=== PATIENT | female | born 1950 | race Caucasian/White ===

== ENCOUNTER 2016-10-11 17:51 | Inpatient (IN) | payer MEDICARE, MEDICAID ==
[2016-10-11 18:13] LABS: Hematocrit 36.4 % (37.0-47.0); Hemoglobin 12.8 gm/dL (12.5-16.0); Mean Cell Volume 79.3 fl (78-100); Mean Corpuscular Hemoglobin 27.9 pg (27-31); Mean Corpuscular Hgb Conc 35.2 g/dl (32-36); Mean Platelet Volume 9.1 fl (6.0-9.5); Neutrophil # 5.1 K/mm3 (1.3-6.0); Neutrophil % 69.4 % (42-75.0); Platelet Count 244 K/mm3 (150-450); Red Blood Count 4.59 M/mm3 (4.2-5.4); Red Cell Distribution Width 13.2 % (11.5-14.0); White Blood Count 7.3 K/mm3 (4.0-10.5)
[2016-10-11 18:24] LABS: INR 1.09 INR (0.90-1.10); Partial Thrombolplastin Time 23.2 Seconds (24-32); Prothrombin Time (Patient) 11.3 Seconds (9.4-11.4)
[2016-10-11 18:26] LABS: Albumin * 3.2 gm/dl (3.4-5.0); Anion Gap 13.4 mmol/L (6.8-13.8); BUN/Creatinine Ratio 13.8 (9.0-21.6); Bilirubin, Total 0.8 mg/dL (0.0-1.1); Ca. Corrected For Albumin 9.5 mg/dL (8.4-10.2); Calcium * 9.2 mg/dL (7.9-10.9); Carbon Dioxide 28.1 mmol/L (24-32.6); Potassium 5.5 mmol/L (3.4-4.6)
--- NOTE | 2016-10-11 18:41 | ERNOTE ---
Neuro HPI ER Record Date of Service: 10/11/16 - 1800 Presenting Symptoms: confusion, difficulty walking Source: EMS Exam Limitations: clinical condition Immunizations: IMMUNIZATION HX Immunizations Up to Date Yes History of Influenza Vaccine No Hx Pneumococcal Vaccination Yes Allergies/Adverse Reactions: Allergies Allergy/AdvReac Type Severity Reaction Status Date / Time codeine [Codeine] Allergy Unknown Verified 04/16/16 10:31 Penicillins Allergy Unknown Verified 04/16/16 10:31 Sulfa (Sulfonamide Allergy Unknown Verified 04/16/16 10:31 Antibiotics) [Sulfa(Sulfonamide Antibiotics)] [id number] Reductase Allergy Verified 04/16/16 10:31 Inhibitor Home Medications: HOME MEDICATIONS Nitroglycerin 1 tab SL PRN PRN 06/28/12 [Last Taken 06/27/14] rOPINIRole HCL [Requip] 3 mg PO HS 06/28/12 [Last Taken 06/27/14] Tramadol HCl 100 mg PO Q6H PRN 07/15/12 [Last Taken 06/27/14] Multivitamins [Multivitamin Wale] 1 cap PO DAILY 10/05/13 [Last Taken 06/27/14 ] Meclizine HCl [Antivert] 25 mg PO TID PRN #14 tablet 07/13/14 [Last Taken Unknown] Metoprolol Tartrate [Lopressor] 25 mg PO DAILY #30 tablet 11/14/15 [Last Taken Unknown] Pravastatin Sodium [Pravachol] 40 mg PO HS #30 tablet 11/14/15 [Last Taken Unknown] Doxycycline Monohydrate 100 mg PO BID #20 tablet 04/16/16 [Last Taken Unknown] Insulin Detemir [Levemir] 25 units SQ BID 04/16/16 [Last Taken Unknown] Insulin Lispro [Humalog] 8 unit SQ AC 04/16/16 [Last Taken Unknown] Lisinopril [Prinivil] 10 mg PO BID 04/16/16 [Last Taken Unknown] Insulin Detemir [Levemir] See Protocol SC AC #1 vial 05/27/16 [Last Taken Unknown] Insulin Lispro [Humalog] 0 - 6 units SQ AC #1 vial 05/27/16 [Last Taken Unknown] - History of Present Illness Narrative: Unclear when the last time was that the patient was seen normal. She was however at the store and was found to be confused and unsteady on her feet so an ambulance called. Onset: cannot confirm onset Severity: moderate - Character of Deficits Additional Deficits: Present: impaired speech, decrease ability to walk Baseline Cognition: Present: alert, oriented x 4 Baseline Gait: Present: walks w/o assistance Review of Systems - Review of Systems Constitutional: Present: See HPI EYE: Present: no symptoms reported ENT: Present: no symptoms reported Respiratory: Present: no symptoms reported Cardiology: Present: no symptoms reported Gastrointestinal/Abdominal: Present: no symptoms reported Genitourinary: Present: no symptoms reported Musculoskeletal: Present: no symptoms reported Skin: Present: no symptoms reported Neurological: Present: See HPI Endocrine: Present: no symptoms reported Hematologic/Lymphatic: Present: no symptoms reported Psych: Present: no symptoms reported All Other Systems: All systems neg except as marked - unable to obtain a ROS due to the baseline status of the patient and the confusion - Patient's Past Medical History Patient History - Medical: Diabetes Type 2 Insulin Dependent, Depression, Renal Disease, Other Patient History - Cardiac/Respiratory: Coronary Heart Disease, Hypertension, Hyperlipidemia, Pneumonia Patient History - Cancer: No Hx of Cancer Patient History - Surgical Procedures: Appendectomy, Cholecystectomy, Cardiac stent, Hysterectomy, Other - Social History Living Situations: alone Abuse History: No History of abuse Psych History: Hx of Anxiety, Hx of Depression Alcohol Use: none Drug Use: none - Immunizations Immunizations Up to Date: Yes Hx Pneumococcal Vaccination: Yes History of Influenza Vaccine: No Physical Exam - Physical Exam General Appearance: Present: wd/wn, mild distress Eye Exam: Normal inspection: bilateral, PERRL: bilateral Ears, Nose, Throat: Present: normal ENT inspection, H, normal pharynx Neck: Present: normal inspection, nontender Respiratory: Present: no respiratory distress, normal breath sounds, no accessory muscle use, chest nontender, lungs clear Cardiovascular/Chest: Present: regular rate, rhythm, no murmur, normal peripheral pulses Gastrointestinal/Abdominal: Present: normal bowel sounds, nontender, nondistended, soft, no organomegaly Rectal Exam: Present: deferred Back Exam: Present: normal inspection, normal range of motion Extremity Exam: Present: normal inspection, non-tender, no edema, normal range of motion Neurological Exam: Present: disoriented to person, disoriented to time, disoriented to place, disoriented to situation. Absent: normal cerebellar test Skin Exam: Present: normal color, warm/dry Lymphatic Exam: Present: no adenopathy ED Progress - Results and Orders Patient's Lab Results:: I have reviewed the patient's lab results. - Vital Signs Patient's Vital Signs:: I have reviewed the patient's vital signs. - CT/Ultrasound CT/Ultrasound Narrative: EKG had was reviewed with radiologist and I discussed the findings with the family. - Progress/Reassessment Progress:: Unchanged Plan - Plan Plan: Patient will need to be admitted to the hospital. She will require an MRI and echocardiogram and probably carotid Doppler ultrasounds or perhaps MRA of the neck is well. Departure Clinical Impression: Acute CVA (cerebrovascular accident) Diabetes mellitus type 2, uncontrolled, with complications Qualifiers: Diabetes mellitus director long term care insulin use: unspecified director long term care insulin use status Qualified Code(s): E11.8 - Type 2 diabetes mellitus with unspecified complications; E11.65 - Type 2 diabetes mellitus with hyperglycemia - Departure Disposition: [facility] Condition: Fair
--- OUTSIDE RECORDS SUMMARY | 2016-10-11 18:56 | XMS REPORT | Continuity of Care Document ---
:1950 Author Organization [facility] ([facility]) Address [address] [place] [address] Phone [phone] Care Team Providers Name Role Phone Jake Shafer Primary Care Provider [phone] Source Comments This disclosure is being made pursuant to the Care Everywhere program, applicable federal and state laws, and may not contain all informaitonavailable regarding this patient.[facility] ([facility]) Active Allergies and Adverse Reactions Allergen Noted Date Severity Reactions Comments Atorvastatin 03/29/2011 Weakness Muscle wasting Ciprofloxacin 03/29/2011 Nausea & Vomiting Codeine OTHER chest pain Penicillins Urticaria (Hives) Simvastatin 03/29/2011 Weakness Muscle wasting Sulfadoxine Urticaria (Hives),OTHER difficulty breathing Current Medications Prescription Sig. Disp. Refills Start Date End Date Status SUPPLY FREESTYLE 1 Each by In Vitro 1 Each 0 05/19/2012 Active FREEDOM LITE meter route once. Indications: ABNORMAL GLUCOSE TOLERANCE aspirin 325 mg EC Take 1 Tab by mouth 30 Tab 07/01/2012 Active tablet daily. Indications: MYOCARDIAL INFARCTION PREVENTION SUPPLY lancets As directed 150 Each 07/02/2012 Active Indications: ABNORMAL GLUCOSE TOLERANCE SUPPLY insulin Take with lantus 30 Syringe 07/03/2012 Active syringe w/ needle +humalog . U-100 1 mL 28 g X Indications: diabtes 1" mellitus insulin lispro inject 4 Units 10 mL 07/03/2012 Active (HumaLOG) 100 subcutaneously 3 unit/mL injection times daily with vial meals. Indications: DIABETES MELLITUS citalopram (CELEXA) Take 2 Tabs by mouth 120 Tab 3 05/16/2013 Active 20 mg tablet daily. Depression Indications: VASOMOTOR SYMPTOMS ASSOCIATED WITH MENOPAUSE nitroglycerin 0.[address] 1 Tab under 25 Tab 0 05/16/2013 Active mg SL tablet the tongue every 5 minutes as needed for Chest pain. Indications: ANGINA lisinopril 20 mg Take 1 Tab by mouth 60 Tab 3 05/16/2013 Active tablet daily. Indications: HYPERTENSION metoPROLol tartrate Take 0.5 Tabs by 120 Tab 3 05/16/2013 Active 25 mg tablet mouth every 12 hours. Indications: CAD pravastatin 20 mg Take 1 Tab by mouth 60 Tab 3 05/16/2013 Active tablet at bedtime. Indications: MIXED HYPERLIPIDEMIA isosorbide Take 0.5 Tabs by 60 Tab 3 05/16/2013 Active mononitrate 60 mg mouth daily. CR tablet Indications: ANGINA PECTORIS PREVENTION SUPPLY blood As directed 150 Strip 11 05/16/2013 Active glucose test strips Indications: ABNORMAL GLUCOSE TOLERANCE traMADol 50 mg Take 1-2 Tabs by 90 Tab 3 05/16/2013 Active tablet mouth 3 times daily as needed. Indications: PAIN rOPINIRole (REQUIP) Take 1 Tab by mouth 90 Tab 1 05/16/2013 Active 1 mg tablet 3 times daily. RLS Indications: RESTLESS LEGS SYNDROME insulin glargine inject 45 Units 4 Vial 3 05/31/2013 Active (LanTUS) 100 subcutaneously at unit/mL injection bedtime. vial Indications: DIABETES MELLITUS pregabalin (LYRICA) Take 1 Cap by mouth 270 Cap 1 05/31/2013 Active 75 mg capsule 3 times daily. Indications: DIABETIC PERIPHERAL NEUROPATHY Active Problems Problem Noted Date UTI (lower urinary tract infection) 07/18/2012 Chest pain, unspecified 07/15/2012 CAD (coronary artery disease) 07/15/2012 Non compliance w medication regimen 07/15/2012 Menopausal syndrome (hot flashes) 07/15/2012 RLS (restless legs syndrome) 07/15/2012 Health education/counseling 05/19/2012 Chest pain 03/29/2011 Non-ST elevation myocardial infarction (NSTEMI) 03/29/2011 Obesity, unspecified 10/08/2008 Depressive disorder, not elsewhere classified 07/11/2008 Myalgia and myositis, unspecified 07/11/2008 Unspecified essential hypertension 07/11/2008 Insomnia, unspecified 07/11/2008 Other and unspecified hyperlipidemia 04/03/2008 Background diabetic retinopathy(362.01) 02/01/2008 Type II or unspecified type diabetes mellitus without mention of 12/20/2007 complication, not stated as uncontrolled Immunizations Name Dates Previously Given Next Due Pneumococcal Polysaccharide, PPSV23 (Pneumovax 23) 05/13/2010 Social History Tobacco Use Types Packs/Day Years Used Date Former Smoker Cigarettes Quit: 03/29/1971 Smokeless Tobacco: Never Used Alcohol Use Drinks/Week oz/Week Comments No Last Filed Vital Signs Vital Sign Reading Time Taken Blood Pressure 133/71 05/16/2013 3:02 PM HANDLE ATTACHER Pulse 74 05/16/2013 3:02 PM HANDLE ATTACHER Temperature 36.3 C (97.3 F) 05/16/2013 3:02 PM HANDLE ATTACHER Respiratory Rate 16 07/18/2012 9:10 AM HANDLE ATTACHER Height 1.575 m (5' 2") 07/15/2012 10:35 PM HANDLE ATTACHER Weight 69.037 kg (152 lb 3.2 oz) 05/16/2013 3:02 PM HANDLE ATTACHER Body Mass Index 27.83 05/16/2013 3:02 PM HANDLE ATTACHER Oxygen Saturation 96% 07/18/2012 12:45 PM HANDLE ATTACHER Plan of Care Patient Goal Type Goal Diet Increase water intake Lifestyle Increase physical activity Health Maintenance Due Date Last Done Comments Hepatitis B Vaccine (1 of 3 - 1950 Primary Series) Sigmoidoscopy Colon Cancer 1999 Screening Zoster Vaccine 2009 FOBT Colon Cancer Screening 04/28/2012 04/28/2011 DIABETIC: Microalbumin 05/19/2013 05/19/2012, Additional history exists 05/13/2010, 01/22/2009 DIABETIC: Hemoglobin A1C 11/13/2013 05/16/2013, Additional history exists 07/01/2012, 06/30/2012 Osteoporosis Screening (DXA 2014 Bone Density) Pneumococcal Vaccine (1 of 2 2014 05/13/2010 - PCV13) DIABETIC: Cholesterol 05/16/2014 05/16/2013, Additional history exists 07/01/2012, 05/19/2012 DIABETIC: Foot Exam 05/16/2014 05/16/2013, Additional history exists 05/16/2013, 04/20/2011 Diabetic: Hdl 05/16/2014 05/16/2013, Additional history exists 07/01/2012, 05/19/2012 Diabetic: Ldl 05/16/2014 05/16/2013, Additional history exists 07/01/2012, 05/19/2012 DIABETIC: Retinal Eye Exam 05/16/2014 05/16/2013 (Declined) DIABETIC: Triglycerides 05/16/2014 05/16/2013, Additional history exists 07/01/2012, 05/19/2012 Mammogram 05/16/2014 05/16/2013 (Declined), 05/13/2010, 04/03/2008 Influenza Vaccine: Seasonal 02/03/2016 (#1) Td Vaccine 05/19/2016 05/19/2006 Colonoscopy 05/19/2022 05/19/2012 (Declined) HCV Screening Completed 07/01/2012 Tdap Vaccine Addressed 05/16/2013 Overridden with the (Postponed) intention of not completing the topic Results from Last 3 Months Not on file
--- OUTSIDE RECORDS SUMMARY | 2016-10-11 19:04 | XMS REPORT | Continuity of Care Document ---
:1950 Author Organization [facility] ([facility]) Address [address] [place] [address] Phone [phone] Care Team Providers Name Role Phone Jake Shafer Primary Care Provider [phone] Source Comments This disclosure is being made pursuant to the Care Everywhere program, applicable federal and state laws, and may not contain all informaitonavailable regarding this patient.[facility] ([facility]) Active Allergies and Adverse Reactions Allergen Noted [...] Taken Blood Pressure 133/71 05/16/2013 3:02 PM LANGUAGE ASST Pulse 74 05/16/2013 3:02 PM LANGUAGE ASST Temperature 36.3 C (97.3 F) 05/16/2013 3:02 PM LANGUAGE ASST Respiratory Rate 16 07/18/2012 9:10 AM LANGUAGE ASST Height 1.575 m (5' 2") 07/15/2012 10:35 PM LANGUAGE ASST Weight 69.037 kg (152 lb 3.2 oz) 05/16/2013 3:02 PM LANGUAGE ASST Body Mass Index 27.83 05/16/2013 3:02 PM LANGUAGE ASST Oxygen Saturation 96% 07/18/2012 12:45 PM LANGUAGE ASST Plan of Care Patient Goal Type Goal [...]
[2016-10-11] MEDS ORDERED: NORMAL SALINE 1,000 ML IV ONE (20:23)
[2016-10-11] MEDS ORDERED: INSULIN ASPART 100 UNITS/ML VIAL SC SCH (21:00)
[2016-10-11] MEDS: NORMAL SALINE 1,000 ML IV PRN (21:50)
[2016-10-11] MEDS: INSULIN LISPRO 100 UNITS/ML VIAL SC SCH (21:56)
--- NOTE | 2016-10-12 01:30 | HP ---
Addendum entered and electronically signed by Gibran Hoffman DO 11/16/16 01:31: Patient was seen with Hospitalist, Fabienne Veloz. Agree with narrative and plan. Suspect Stroke based on CT, will evaluate for cause with MRA. Appears to be acute on chronic changes. Will consult PT, OT, and ST. Original Note: Chief Complaint - Chief Complaint Date of Service: 10/12/16 Time of Service: 01:30 Chief Complaint: Confusion, weakness. History of Present Illness: Ms. Olson is a 66-yr-old [place] pt of Dr. Hidalgo with a PMH of: CKD, CAD, Depression, DM II, HTN, Insomina & MA. Pt was brought by the EMS to the [facility] ER following an episode of confusion and unsteadiness that happened while she was out shopping at a local store. She is unable to relay how she has been feeling, but recalls that she felt suddenly weak, dizzy, and that she feels that way when her blood sugars are high. There was no loss of consciousness with this episode. During evaluation at the ED, The head CT showed she had an infarct on the LT parietal occipital lobe. She was also found to have Acute on chronic kidney disease with a creatinine of 2.17. Off note family reports that over the last several months, pt has had worsening confusion or says things that do not make sense. Daughter states that her confusions seem to be worse during the evening hours. They also have concerns that she has not been managing her DM well. Pt will need to be admitted under observation to determine the etiology of AMS. - Patient's Past Medical History Patient History - Medical: Diabetes Type 2 Insulin Dependent, Depression, Renal Disease, Other Patient History - Cardiac/Respiratory: Coronary Heart Disease, Hypertension, Hyperlipidemia, Pneumonia Patient History - Cancer: No Hx of Cancer Patient History - Surgical Procedures: Appendectomy, Cholecystectomy, Cardiac stent, Hysterectomy LMP (females 10-50): Menopausal - Social History Living Situations: alone Abuse History: No History of abuse Psych History: Hx of Anxiety, Hx of Depression Smoking Status: Never smoker Have you smoked in the past 12 months: No Alcohol Use: none Drug Use: none - Immunizations Immunizations Up to Date: Yes Hx Pneumococcal Vaccination: Yes History of Influenza Vaccine: No Review Of Systems (GEN) - Review of Systems Generalized/Overall Review: Present: Weakness. Absent: Fever EENTM: Absent: Eye Pain, Blurred Vision, Throat Pain, Throat Swelling Respiratory: Absent: Cough, Shortness of Breath, Orthopnea Cardiac: Absent: Chest Pain, Edema, Palpitations, Syncope Abdominal: Absent: Nausea, Vomiting Genitourinary: Absent: Burning, Frequency, Hesitancy Musculoskeletal: Absent: Joint Pain, Back Pain, Joint Swelling Neurological: Present: Weakness. Absent: Headache, Anxiety, Depressed Endocrine: Present: Intolerance to Heat Misc: All systems neg except as marked Allergies/Adverse Reactions: Allergies Allergy/AdvReac Type Severity Reaction Status Date / Time codeine [Codeine] Allergy Unknown Verified 04/16/16 10:31 Penicillins Allergy Unknown Verified 04/16/16 10:31 Sulfa (Sulfonamide Allergy Unknown Verified 04/16/16 10:31 Antibiotics) [Sulfa(Sulfonamide Antibiotics)] Urhesfi-Hfn-Kaw Reductase Allergy Verified 04/16/16 10:31 Inhibitor Home Medications: HOME MEDICATIONS Nitroglycerin 1 tab SL PRN PRN 06/28/12 [Last Taken 06/27/14] rOPINIRole HCL [Requip] 3 mg PO HS 06/28/12 [Last Taken 06/27/14] Tramadol HCl 100 mg PO Q6H PRN 07/15/12 [Last Taken 06/27/14] Multivitamins [Multivitamin Wale] 1 cap PO DAILY 10/05/13 [Last Taken 06/27/14 ] Metoprolol Tartrate [Lopressor] 25 mg PO DAILY #30 tablet 11/14/15 [Last Taken Unknown] Pravastatin Sodium [Pravachol] 40 mg PO HS #30 tablet 11/14/15 [Last Taken Unknown] Insulin Detemir [Levemir] 25 units SQ BID 04/16/16 [Last Taken Unknown] Insulin Lispro [Humalog] 8 unit SQ AC 04/16/16 [Last Taken Unknown] Lisinopril [Prinivil] 10 mg PO BID 04/16/16 [Last Taken Unknown] Insulin Lispro [Humalog] 0 - 6 units SQ AC #1 vial 05/27/16 [Last Taken Unknown] Sertraline HCl [Zoloft] 25 mg PO DAILY 10/11/16 [Last Taken Unknown] Exam - Exam Vital Signs: Vital Signs - Last Taken Temp 36.8 C 10/12/16 00:22 Pulse 70 10/12/16 00:22 Resp 20 10/12/16 00:22 BP 144/60 10/12/16 00:22 Pulse Ox 93 10/12/16 00:22 Constitutional: Present: Alert, Oriented x3, Cooperative, No distress ENT Exam: Present: normal ENT inspection. Absent: nasal drainage, pharyngeal erythema Eye Exam: bilateral eye: normal inspection, PERRL Neck: Present: full range of motion, supple, normal inspection Back Exam: Present: normal inspection, no CVA tenderness Breasts: Present: Exam deferred Respiratory: Present: lungs clear, no accessory muscle use Cardiovascular/Chest: Present: normal peripheral pulses, regular rate, rhythm, no chest tenderness, no murmur Abdomen: Present: Normal bowel sounds, soft, nontender /Rectal: Present: Exam deferred Extremity: Present: normal range of motion, non-tender, normal inspection, no calf tenderness Skin Exam: Present: warm/dry, no cyanosis Lymphatic: Present: no adenopathy Neurologic: Present: alert, normal mood/affect, oriented x 3 Appearance: Present: appropriate appearance, appropriate insight Eye contact: Present: cooperative, good eye contact, normal speech Thoughts: Present: normal thought pattern, no apparent hallucination Diagnostic Studies: Laboratory Results WBC 7.3 K/mm3 (4.0-10.5) 10/11/16 18:10 RBC 4.59 M/mm3 (4.2-5.4) 10/11/16 18:10 Hgb 12.8 gm/dL (12.5-16.0) 10/11/16 18:10 Hct 36.4 % (37.0-47.0) L 10/11/16 18:10 MCV 79.3 fl (78-100) 10/11/16 18:10 MCH 27.9 pg (27-31) 10/11/16 18:10 MCHC 35.2 g/dl (32-36) 10/11/16 18:10 RDW 13.2 % (11.5-14.0) 10/11/16 18:10 Plt Count 244 K/mm3 (150-450) 10/11/16 18:10 MPV 9.1 fl (6.0-9.5) 10/11/16 18:10 Immature Gran % (Auto) 0.40 % (0.001-0.429) 10/11/16 18:10 Immature Gran # (Auto) 0.03 K/mm3 (0.000-0.0310) 10/11/16 18:10 Neutrophils % 69.4 % (42-75.0) 10/11/16 18:10 Lymphocytes % 24.7 % (20-51) 10/11/16 18:10 Monocytes % 4.7 % (0.0-9) 10/11/16 18:10 Eosinophils % 0.3 % (0.0-3.0) 10/11/16 18:10 Basophils % 0.5 % (0.0-1.0) 10/11/16 18:10 Nucleated RBC % 0.0 k/mm3 (0-1) 10/11/16 18:10 Neutrophils # 5.1 K/mm3 (1.3-6.0) 10/11/16 18:10 Lymphocytes # 1.8 k/mm3 (1.5-3.5) 10/11/16 18:10 Monocytes # 0.3 k/mm3 (0.0-1.0) 10/11/16 18:10 Eosinophils # 0.0 k/mm3 (0.0-0.7) 10/11/16 18:10 Absolute Basophils 0.0 k/mm3 (0.0-0.1) 10/11/16 18:10 ESR 45 mm/hr (0-15) H 10/11/16 18:10 PT 11.3 Seconds (9.4-11.4) 10/11/16 18:10 INR (Anticoag Therapy) 1.09 INR (0.90-1.10) 10/11/16 18:10 PTT ([place]) 23.2 Seconds (24-32) L 10/11/16 18:10 Sodium 132 mmol/L (132-142) 10/11/16 18:10 Plasma Sodium 137 mmol/L (130-142) 10/11/16 18:10 Potassium 5.5 mmol/L (3.4-4.6) H 10/11/16 18:10 Chloride 96 mmol/L (97-106) L 10/11/16 18:10 Carbon Dioxide 28.1 mmol/L (24-32.6) 10/11/16 18:10 Anion Gap 13.4 mmol/L (6.8-13.8) 10/11/16 18:10 BUN 30 mg/dL (3-23) H D 10/11/16 18:10 Creatinine 2.17 mg/dL (0.4-1.4) H D 10/11/16 18:10 Est GFR (Non-Af Amer) 24 mL/min (60-130) L D 10/11/16 18:10 BUN/Creatinine Ratio 13.8 (9.0-21.6) 10/11/16 18:10 Random Glucose 398 mg/dL (70-110) H 10/11/16 18:10 Calcium 9.2 mg/dL (7.9-10.9) 10/11/16 18:10 Calcium Adj for Albumin 9.5 mg/dL (8.4-10.2) 10/11/16 18:10 Magnesium 1.7 mg/dL (1.2-2.8) 10/11/16 18:10 Total Bilirubin 0.8 mg/dL (0.0-1.1) 10/11/16 18:10 AST 10 U/L (0-48) 10/11/16 18:10 ALT 15 U/L (19-67) L 10/11/16 18:10 Alkaline Phosphatase 68 U/L (50-170) 10/11/16 18:10 Total Protein 7.0 gm/dL (6.2-8.2) 10/11/16 18:10 Albumin 3.2 gm/dl (3.4-5.0) L 10/11/16 18:10 Serum Ketones Negative (NEGATIVE) 10/11/16 18:10 Assessment/Plan - Assessment/Plan (1) TIA (transient ischemic attack) Assessment: CT of the head showed infarct of LT occipital lobe. Will need MRI on head & Neck in am to r/o or r/i CVA. Will be admitted under telemetry monitoring. Monitor neuro checks. Problem: Acute (2) Altered mental status, unspecified Assessment: Likely due to metabolic derangements. BUN/CR elevated at 30/2.17.Will provide IVF hydration. MRI of head may help in ruling out vascular dementia. Problem: Acute (3) Acute kidney injury Assessment: Is likely pre- renal. Her base line in the past is usually in the [place] Will hold the Lisinopril. IVF hydration. BMP in am. Problem: Acute (4) Discharge planning issues Assessment: Pt lives independently but family express poor self care & DM mgt. Will have case management coordinate [facility] Services. Problem: Acute (5) Diabetes Problem: Chronic Qualifiers: Diabetes mellitus type: type 2 (6) Hypertension Problem: Chronic Qualifiers: Hypertension type: essential hypertension
[2016-10-12] MEDS ORDERED: traMADol HCL 50 MG TABLET PO PRN (05:15)
[2016-10-12] MEDS ORDERED: NITROGLYCERIN 0.4 MG/TAB BTL SL PRN (05:15)
[2016-10-12] MEDS: NORMAL SALINE 1,000 ML IV PRN ×3 (05:35→22:26)
[2016-10-12 05:38] LABS: Urine Bilirubin Negative (NEGATIVE); Urine Blood 50 /ul (NEGATIVE); Urine Ketone Negative (NEGATIVE); Urine Nitrite Negative (NEGATIVE); Urine Protein 100 mg/dL (NEGATIVE); Urine Specific Gravity 1.025 SP.GR. (1.005-1.010); Urine Urobilinogen Normal (NORMAL)
[2016-10-12 05:57] LABS: Urine Appearance Slightly Cloudy; Urine Color Yellow
[2016-10-12 05:58] LABS: Urine Bacteria 1+; Urine RBC 0-5 /hpf (0-5); Urine WBC 25-50 /hpf (0-5); Urine Yeast Many - 3+
[2016-10-12] MEDS: INSULIN LISPRO 100 UNITS/ML VIAL SC SCH ×7 (07:12→20:43)
[2016-10-12] MEDS: LISINOPRIL 10 MG TABLET PO SCH ×2 (08:53→20:37)
[2016-10-12] MEDS: SERTRALINE HCL 50 MG TABLET PO SCH (08:53)
[2016-10-12] MEDS: MULTIVITAMINS 1 CAP CAPSULE PO SCH (08:53)
[2016-10-12] MEDS: INSULIN DETEMIR 100 UNITS/ML VIAL SC SCH ×2 (08:55→20:41)
[2016-10-12 09:38] LABS: Hematocrit 28.6 % (37.0-47.0); Hemoglobin 10.1 gm/dL (12.5-16.0); Mean Cell Volume 80.1 fl (78-100); Mean Corpuscular Hemoglobin 28.3 pg (27-31); Mean Corpuscular Hgb Conc 35.3 g/dl (32-36); Mean Platelet Volume 8.9 fl (6.0-9.5); Neutrophil # 3.3 K/mm3 (1.3-6.0); Neutrophil % 54.3 % (42-75.0); Platelet Count 170 K/mm3 (150-450); Red Blood Count 3.57 M/mm3 (4.2-5.4); Red Cell Distribution Width 12.9 % (11.5-14.0); White Blood Count 6.1 K/mm3 (4.0-10.5)
[2016-10-12 09:56] LABS: Albumin * 2.4 gm/dl (3.4-5.0); Anion Gap 11.8 mmol/L (6.8-13.8); BUN/Creatinine Ratio 19.5 (9.0-21.6); Bilirubin, Total 0.6 mg/dL (0.0-1.1); Ca. Corrected For Albumin 9.4 mg/dL (8.4-10.2); Calcium * 8.4 mg/dL (7.9-10.9); Carbon Dioxide 27.2 mmol/L (24-32.6); Total Protein 5.5 gm/dL (6.2-8.2); Troponin I 0.09 ng/ml (0.00-0.10)
[2016-10-12] MEDS: ASPIRIN 325 MG TABLET.DR PO SCH (11:12)
[2016-10-12 16:53] LABS: Albumin * 2.7 gm/dl (3.4-5.0); Anion Gap 9.6 mmol/L (6.8-13.8); BUN/Creatinine Ratio 21.2 (9.0-21.6); Bilirubin, Total 0.4 mg/dL (0.0-1.1); Ca. Corrected For Albumin 9.1 mg/dL (8.4-10.2); Calcium * 8.4 mg/dL (7.9-10.9); Carbon Dioxide 27.4 mmol/L (24-32.6); Total Protein 6.1 gm/dL (6.2-8.2)
[2016-10-12 16:58] LABS: Troponin I 0.112 ng/ml (0.00-0.10)
[2016-10-12] MEDS: rOPINIRole HCL 1 MG TABLET PO SCH (20:37)
[2016-10-12] MEDS ORDERED: SIMVASTATIN 20 MG TABLET PO SCH (21:00)
[2016-10-13 05:35] LABS: Hematocrit 29.3 % (37.0-47.0); Hemoglobin 10.1 gm/dL (12.5-16.0); Mean Cell Volume 80.5 fl (78-100); Mean Corpuscular Hemoglobin 27.7 pg (27-31); Mean Corpuscular Hgb Conc 34.5 g/dl (32-36); Mean Platelet Volume 9.8 fl (6.0-9.5); Neutrophil % 53.3 % (42-75.0); Platelet Count 166 K/mm3 (150-450); Red Blood Count 3.64 M/mm3 (4.2-5.4); White Blood Count 5.6 K/mm3 (4.0-10.5)
[2016-10-13 05:57] LABS: Albumin * 2.4 gm/dl (3.4-5.0); Anion Gap 10.2 mmol/L (6.8-13.8); BUN/Creatinine Ratio 20.4 (9.0-21.6); Bilirubin, Total 0.4 mg/dL (0.0-1.1); Ca. Corrected For Albumin 9.2 mg/dL (8.4-10.2); Calcium * 8.2 mg/dL (7.9-10.9); Potassium 4.2 mmol/L (3.4-4.6); Total Protein 5.5 gm/dL (6.2-8.2)
[2016-10-13] MEDS: NORMAL SALINE 1,000 ML IV PRN ×3 (06:17→22:27)
[2016-10-13] MEDS: INSULIN LISPRO 100 UNITS/ML VIAL SC SCH ×7 (07:20→21:04)
[2016-10-13] MEDS: ASPIRIN 325 MG TABLET.DR PO SCH (08:33)
[2016-10-13] MEDS: SERTRALINE HCL 50 MG TABLET PO SCH (08:33)
[2016-10-13] MEDS: MULTIVITAMINS 1 CAP CAPSULE PO SCH (08:33)
[2016-10-13] MEDS: LISINOPRIL 10 MG TABLET PO SCH ×2 (08:33→21:08)
[2016-10-13] MEDS: INSULIN DETEMIR 100 UNITS/ML VIAL SC SCH ×2 (09:44→22:26)
[2016-10-13] MEDS: rOPINIRole HCL 1 MG TABLET PO SCH (21:09)
[2016-10-14] MEDS: INSULIN LISPRO 100 UNITS/ML VIAL SC SCH ×7 (06:46→20:23)
[2016-10-14] MEDS: NORMAL SALINE 1,000 ML IV PRN (06:49)
[2016-10-14] MEDS ORDERED: SIMVASTATIN 20 MG TABLET PO ONE (08:40)
--- NOTE | 2016-10-14 08:47 | PN ---
Subjective - Date and Time Seen Date: 10/13/16 Time: 16:15 Subjective Narrative: Reports getting stronger. States she was able to walk in the [place] with PT. Nursing reports she has otherwise been in bed. Patient denies difficulty eating or speaking. Nursing has noted difficulty getting out the right words. No concerns for swallow. Objective - Vitals Vitals: Last Vital Signs 10/13/16 10:18 Temperature 36.6 C Pulse Rate 56 L Respiratory 18 Rate Blood Pressure 151/65 O2 Sat by Pulse 94 Oximetry - Exam Constitutional: Present: Alert, Oriented x3, Cooperative ENT Exam: Present: hearing grossly normal Respiratory: Present: lungs clear, normal breath sounds Cardiovascular/Chest: Present: regular rate, rhythm, no murmur Abdomen: Present: Normal bowel sounds, soft, nontender, nondistended Assessment/Plan - Problems/Diagnosis (1) Acute CVA (cerebrovascular accident) Problem: Acute Narrative: Continue with therapy, making improvement. Brain imaging shows acute on chronic CVA. She recently has not been on statin or aspirin. She is now on aspirin 325mg daily and will restart pravastatin 40mg as lipids were elevated. Continue PT, OT, ST. (2) Acute on chronic renal failure Problem: Resolved Narrative: With fluids this has resolved.
--- NOTE | 2016-10-14 09:16 | ECHO ---
This report is available in the EMR
[2016-10-14] MEDS: LISINOPRIL 10 MG TABLET PO SCH ×2 (09:20→20:25)
[2016-10-14] MEDS: MULTIVITAMINS 1 CAP CAPSULE PO SCH (09:20)
[2016-10-14] MEDS: ASPIRIN 325 MG TABLET.DR PO SCH (09:20)
[2016-10-14] MEDS: INSULIN DETEMIR 100 UNITS/ML VIAL SC SCH ×2 (09:21→20:24)
[2016-10-14] MEDS: SERTRALINE HCL 50 MG TABLET PO SCH (09:21)
[2016-10-14] MEDS: rOPINIRole HCL 1 MG TABLET PO SCH (20:25)
[2016-10-15] MEDS: INSULIN LISPRO 100 UNITS/ML VIAL SC SCH ×7 (06:54→20:19)
[2016-10-15] MEDS ORDERED: ONDANSETRON 4 MG TAB.RAPDIS PO PRN (10:00)
[2016-10-15 10:06] LABS: Hematocrit 33.7 % (37.0-47.0); Hemoglobin 11.7 gm/dL (12.5-16.0); Mean Cell Volume 80.4 fl (78-100); Mean Corpuscular Hemoglobin 27.9 pg (27-31); Mean Corpuscular Hgb Conc 34.7 g/dl (32-36); Mean Platelet Volume 9.6 fl (6.0-9.5); Neutrophil # 2.8 K/mm3 (1.3-6.0); Neutrophil % 48.4 % (42-75.0); Platelet Count 236 K/mm3 (150-450); Red Blood Count 4.19 M/mm3 (4.2-5.4); Red Cell Distribution Width 12.9 % (11.5-14.0); White Blood Count 5.9 K/mm3 (4.0-10.5)
[2016-10-15 10:22] LABS: Albumin * 2.7 gm/dl (3.4-5.0); Anion Gap 11.9 mmol/L (6.8-13.8); BUN/Creatinine Ratio 14.9 (9.0-21.6); Bilirubin, Total 0.7 mg/dL (0.0-1.1); Ca. Corrected For Albumin 9.4 mg/dL (8.4-10.2); Calcium * 8.7 mg/dL (7.9-10.9); Carbon Dioxide 26.1 mmol/L (24-32.6); Total Protein 6.3 gm/dL (6.2-8.2)
[2016-10-15] MEDS: MULTIVITAMINS 1 CAP CAPSULE PO SCH (10:42)
[2016-10-15] MEDS: SERTRALINE HCL 50 MG TABLET PO SCH (10:42)
[2016-10-15] MEDS: CLOPIDOGREL BISULFATE 75 MG TABLET PO SCH (10:42)
[2016-10-15] MEDS: INSULIN DETEMIR 100 UNITS/ML VIAL SC SCH ×2 (10:43→20:20)
[2016-10-15] MEDS: LISINOPRIL 10 MG TABLET PO SCH ×2 (10:50→20:20)
--- NOTE | 2016-10-15 10:53 | PN ---
Subjective - Date and Time Seen Date: 10/14/16 Time: 16:30 Subjective Narrative: Alon reports feeling well, she feels like she is strong enough to go home and do everything she normally does. PT and OT feel she is doing well. She has not been able to see speech therapy yet. Patient's relative who was visiting reported that she had moments of confusion that were not normal. It was reported that the patient was talking about meeting a relative that has been for many years. She also seemed confused with how to use toilet paper. Family feels concerned that she is too confused at times to be safe at home on her own. Objective - Vitals Vitals: Last Vital Signs 10/14/16 15:00 Temperature 36.9 C Pulse Rate 60 Respiratory 16 Rate Blood Pressure 182/80 O2 Sat by Pulse 93 Oximetry - Abnormal Lab Findings Abnormal Lab Findings: Abnormal Lab Results - Exam Constitutional: Present: Alert, Oriented x3, Cooperative ENT Exam: Present: hearing grossly normal Respiratory: Present: lungs clear, normal breath sounds Cardiovascular/Chest: Present: regular rate, rhythm, no murmur Abdomen: Present: Normal bowel sounds, soft, nontender, nondistended Skin Exam: Present: normal color, warm/dry, no cyanosis Assessment/Plan - Problems/Diagnosis (1) Acute CVA (cerebrovascular accident) Problem: Acute Narrative: Ok for home per PT and OT. Has not been evaluated by speech. Patient has confusion to the point she is not safe to be at home by herself. Will have a meeting with family tomorrow about staying with a family member vs home health vs nursing facility. Continue Aspirin 325mg and Statin. BP controlled. (2) Acute on chronic renal failure Problem: Resolved
--- NOTE | 2016-10-15 11:11 | PN ---
Subjective - Date and Time Seen Date: 10/15/16 Time: 10:53 Subjective Narrative: Patient was in her usual state of health during this hospital course this morning when it was noted by nursing aid that she was staring off in space and non-responsive. She did not respond to stimulis. Nursing reports pupils were not reactive to light. She had a state Head CT that showed no acute change from prior. The patient has gradually improved since then and now follows commands although seems very "spacey." She is able to move all extremities and follow commands. She has no focal motor or sensory loss. No facial droop. She is able to talk but very slow and quiet from her usual. No slurred speech. Objective - Vitals Vitals: Last Vital Signs Temp 36.8 C 10/15/16 10:23 Pulse 56 L 10/15/16 10:23 Resp 16 10/15/16 10:23 BP 143/68 10/15/16 10:23 Pulse Ox 98 10/15/16 10:23 - Abnormal Lab Findings Abnormal Lab Findings: Abnormal Lab Results 10/15/16 10/15/16 Range/Units 08:30 08:30 RBC 4.19 L (4.2-5.4) M/mm3 Hgb 11.7 L (12.5-16.0) gm/dL Hct 33.7 L (37.0-47.0) % MPV 9.6 H (6.0-9.5) fl Immature Gran % (Auto) 0.50 H (0.001-0.429) % Potassium 5.0 H (3.4-4.6) mmol/L Creatinine 1.41 H (0.4-1.4) mg/dL Est GFR (Non-Af Amer) 40 L D (60-130) mL/min ALT 15 L (19-67) U/L Albumin 2.7 L (3.4-5.0) gm/dl - Exam Constitutional: Present: Alert, Other - Oriented x 0, patient confused, is unsure what is going on, follows commands, appears post-ictal Respiratory: Present: lungs clear, normal breath sounds Cardiovascular/Chest: Present: regular rate, rhythm, no murmur Abdomen: Present: Normal bowel sounds, soft, nontender, nondistended Skin Exam: Present: normal color, warm/dry, no cyanosis Neurologic: Present: it architect II-XII nml as tested, no motor/sensory deficits, depressed affect Assessment/Plan Plan Narrative: This morning patient had altered mental state that appeared more of absence seizure with post ictal state. Stat head CT showed no acute changes. Discussed with Neurology who agreed with getting EEG. Bloodwork shows no significant changes to cause this episode. Had been planning to discharge today, but due to this episode will hold off and monitor for atleast another 24 hours. - Problems/Diagnosis (1) Altered mental state Problem: Acute (2) Acute CVA (cerebrovascular accident) Problem: Acute (3) Acute on chronic renal failure Problem: Resolved
[2016-10-15] MEDS: ASPIRIN 325 MG TABLET.DR PO SCH (11:25)
[2016-10-15] MEDS: rOPINIRole HCL 1 MG TABLET PO SCH (20:20)
[2016-10-16] MEDS: INSULIN LISPRO 100 UNITS/ML VIAL SC SCH ×7 (06:55→20:27)
[2016-10-16] MEDS: LISINOPRIL 10 MG TABLET PO SCH ×2 (08:46→20:43)
[2016-10-16] MEDS: MULTIVITAMINS 1 CAP CAPSULE PO SCH (08:46)
[2016-10-16] MEDS: CLOPIDOGREL BISULFATE 75 MG TABLET PO SCH (08:46)
[2016-10-16] MEDS: SERTRALINE HCL 50 MG TABLET PO SCH (08:46)
[2016-10-16] MEDS: INSULIN DETEMIR 100 UNITS/ML VIAL SC SCH ×2 (08:48→20:32)
[2016-10-16] MEDS: levETIRAcetam 500 MG TABLET PO SCH ×2 (14:49→20:32)
[2016-10-16] MEDS: rOPINIRole HCL 1 MG TABLET PO SCH (20:32)
--- NOTE | 2016-10-16 23:54 | PN ---
Subjective - Date and Time Seen Date: 10/16/16 Time: 14:16 Subjective Narrative: Patient reports feeling well, but does not recall what has happened today. No focal concerns at this time. Family and nursing report that she was in her usual state of health this morning but around noon she had an episode of staring off into space for about 10 minutes. She was unable to follow commands during this time. She had eyes open staring at the wall. During this time she was also witness by her son, Fab, to have bilateral arm tremors with clenched fists (right greater than left). This resolved and slowly afterwards her mentation gradually returned to normal over the next few hours. Objective - Vitals Vitals: Last Vital Signs Temp 36.4 C L 10/16/16 22:34 Pulse 54 L 10/16/16 22:34 Resp 18 10/16/16 22:34 BP 119/47 10/16/16 22:34 Pulse Ox 93 10/16/16 22:34 - Exam Constitutional: Present: Alert, Oriented x3, Cooperative Respiratory: Present: lungs clear, normal breath sounds, no respiratory distress Cardiovascular/Chest: Present: normal peripheral pulses, regular rate, rhythm, no edema Abdomen: Present: Normal bowel sounds, soft, nontender, nondistended Skin Exam: Present: normal color, warm/dry, no cyanosis Assessment/Plan - Problems/Diagnosis (1) Seizure disorder as sequela of cerebrovascular accident Problem: Acute Narrative: Alon is a 66 yo female with evidence on MRI of acute on chronic stroke. Elevated lipids. Prior to hospitalization she was not on aspirin or any other blood thinner and was not currently taking a statin. She reports prior history of intolerance to statins but thinks that she may have done ok with pravastatin. She was admitted with an episode of altered mental status that resolved, but the family reports that she has been having episodes of confusion for the last few months. She lives alone but family reports episodes of confusion experienced over the phone. During hospital course she was started on aspirin 325mg and simvastatin due to formulary, with plans to discharge on pravastatin. She was evaluated by PT, OT, and ST and felt to be doing well and only outpatient speech therapy was recommended. PT and OT was felt to not be needed. Home health had been discussed, but declined by the patient. Plans were being made for the patient to be discharged to home with a family member to stay with her for some period of time. However, she had a repeat spell. She stayed for further evaluation with repeat head CT, Brain MRI, and EEG (due to episode of staring off into space) EEG showed evidence of encephalopathy and head CT and brain MRI were unchanged. Asprin was stopped and she was started on Plavix. She was monitored for another 24 hours and had another similar episode today which also had upper extremity tremoring/shakes. I have discussed the patient's course daily with neurology who was not available for inpatient consultation. Dr. Samayoa recommended starting Keppra 500mg BID and observing for 24 hours and following up with neurology as outpatient. Family agrees to stay with the patient for a few weeks. She will continue on Keppra, pravastatin, and Plavix. If she is medically stable she may be discharged in the next 1-2 days. (2) Altered mental state Problem: Acute (3) Acute CVA (cerebrovascular accident) Problem: Acute (4) Acute on chronic renal failure Problem: Resolved
[2016-10-17] MEDS: INSULIN LISPRO 100 UNITS/ML VIAL SC SCH ×2 (06:59→07:00)
[2016-10-17] MEDS: CLOPIDOGREL BISULFATE 75 MG TABLET PO SCH (08:42)
[2016-10-17] MEDS: MULTIVITAMINS 1 CAP CAPSULE PO SCH (08:42)
[2016-10-17] MEDS: SERTRALINE HCL 50 MG TABLET PO SCH (08:43)
[2016-10-17] MEDS: levETIRAcetam 500 MG TABLET PO SCH (08:44)
[2016-10-17] MEDS: INSULIN DETEMIR 100 UNITS/ML VIAL SC SCH (08:44)
[2016-10-17 10:17] VITALS: BP 117/53
--- NOTE | 2016-10-17 10:28 | DS ---
(1) Acute CVA (cerebrovascular accident) Problem: Acute (2) Diabetes mellitus type 2, uncontrolled, with complications Problem: Acute Qualifiers: Diabetes mellitus fpc insulin use: unspecified moth exterminator insulin use status Qualified Code(s): E11.8 - Type 2 diabetes mellitus with unspecified complications; E11.65 - Type 2 diabetes mellitus with hyperglycemia (3) Seizure disorder as sequela of cerebrovascular accident Problem: Acute (4) TIA (transient ischemic attack) Problem: Acute Description of Stay: ADMISSION DATE: 10.12.2016 DISCHARGE DATE: 10.17.2016 ADMISSION HPI by ROZINA Nuñez: Ms. Olson is a 66-yr-old WF pt of Dr. Hidalgo with a PMH of: CKD, CAD, Depression, DM II, HTN, Insomina & SD. Pt was brought by the EMS to the [facility] ER following an episode of confusion and unsteadiness that happened while she was out shopping at a local store. She is unable to relay how she has been feeling, but recalls that she felt suddenly weak, dizzy, and that she feels that way when her blood sugars are high. There was no loss of consciousness with this episode. During evaluation at the ED, The head CT showed she had an infarct on the LT parietal occipital lobe. She was also found to have Acute on chronic kidney disease with a creatinine of 2.17. Off note family reports that over the last several months, pt has had worsening confusion or says things that do not make sense. Daughter states that her confusions seem to be worse during the evening hours. They also have concerns that she has not been managing her DM well. Pt will need to be admitted under observation to determine the etiology of AMS. HOSPITAL COURSE: Alon is a 66 yo female with evidence on MRI of acute on chronic stroke. Elevated lipids. Prior to hospitalization she was not on aspirin or any other blood thinner and was not currently taking a statin. She reports prior history of intolerance to statins but thinks that she may have done ok with pravastatin. She was admitted with an episode of altered mental status that resolved, but the family reports that she has been having episodes of confusion for the last few months. She lives alone but family reports episodes of confusion experienced over the phone. During hospital course she was started on aspirin 325mg and simvastatin due to formulary, with plans to discharge on pravastatin. She was evaluated by PT, OT, and ST and felt to be doing well and only outpatient speech therapy was recommended. PT and OT was felt to not be needed. Home health had been discussed, but declined by the patient. Plans were being made for the patient to be discharged to home with a family member to stay with her for some period of time. However, she had a repeat spell. She stayed for further evaluation with repeat head CT, Brain MRI, and EEG (due to episode of staring off into space) EEG showed evidence of encephalopathy and head CT and brain MRI were unchanged. Asprin was stopped and she was started on Plavix. She was monitored for another 24 hours and had another similar episode today which also had upper extremity tremoring/shakes. Patients case was discussed daily with neurology who was not available for inpatient consultation. Dr. Samayoa recommended starting Keppra 500mg BID and observing for 24 hours and following up with neurology as outpatient. Patient did not have any further episodes and thus, was discharged home on 10.17.2016. Family agrees to stay with the patient for a few weeks. She will continue on Keppra, pravastatin, and Plavix. FOLLOW-UP APPOINTMENTS: -PCP, Dr. Hidalgo, within 1 week -Patient will need to establish care with Neurology. I will defer to the patient s PCP, Dr. Hidalgo, to make these arrangements at the [facility] hospital follow-up visit with him. -Outpatient CLASSIFIER TENDER evaluation and treatment NEW OR CHANGED MEDICATIONS: Plavix 75mg PO daily Pravastatin 40mg PO qHS Keppra 500mg PO BID DISCONTINUED MEDICATIONS: None RADIOLOGY: CT head without contrast on 10/11/2016 showed no acute intracranial hemorrhage or mass effect. Infarct involving the left parietal-occipital lobe and medial left occipital lobe. Acute on chronic changes are suspected. Chest x-ray on 10/11/2016 showed no acute pulmonary findings. Hypoventilatory changes. Brain MRI without contrast on 10/12/2016 showed: 1. Mild to moderate cortical atrophy with minimal ischemic small vessel disease. 2. Late subacute to chronic infarct involving the left occipital/posterior left temporal lobe. 3. Small focus of ischemia within the left white matter adjacent to the left frontal horn which also appears to be subacute in appearance. 4. Ischemic small vessel disease within the cipriano. Duplex carotid ultrasound on 10/12/2016 showed: 1. Mild right-sided echogenic carotid plaque without evidence for hemodynamically significant stenosis. 2. Mild to moderate left-sided echogenic carotid plaque without evidence for hemodynamically significant stenosis. 3. Normal antegrade flow in the vertebral arteries. 2D TTE on 10/12/2016 showed: Left Ventricle: Normal size, moderate concentric LVH, EF normal at 58%, wall motion normal. Right Ventricle: Normal size and function. Atria: Left atrium mildly dilated. Right atrial size normal. Contrast injection was performed and this study was negative for septal defect. Mitral valve: Possible diastolic dysfunction. No evidence of mitral valve prolapse. No mitral valve stenosis. No mitral valve regurgitation noted. Tricuspid valve: No tricuspid stenosis. Trace tricuspid regurgitation. Right ventricular systolic pressure is elevated at 42 mmHg. Aortic valve: Valve opens well. No hemodynamically significant valvular aortic stenosis. No aortic regurgitation. Pulmonic valve: Not well visualized. Great vessels: No IVC. Pericardium/pleural: There is no pericardial effusion. CT head without contrast on 10/15/2016 showed unchanged left parietal occipital infarct. Brain MRI with and without contrast on 10/15/2016 showed no significant interval change. Procedures Performed: none Results and Findings: Laboratory Tests 10/12/16 09:35 Triglycerides 394 H Cholesterol 254 H LDL Cholesterol 147 H VLDL Cholesterol 79 H HDL Cholesterol 28 L Cholesterol/HDL Ratio 9.0 H Discharge Disposition: Home self care Disposition: Home self-care Condition: Stable Discharge Activity: Activity as tolerated Discharge Diet: Consistent carbs, Other - Diabetic diet Referrals: Anabel Hidalgo MD [Primary Care Provider] - Problem Oriented Discharge Instructions to Patient/Family: Ischemic Stroke Treated Without Warfarin, [id number] Additional Patient Instructions (free text): Follow-up with PCP within 1 week Prescriptions (Any new or edited meds): Clopidogrel Bisulfate [Plavix] 75 mg PO DAILY #30 tablet Pravastatin Sodium 40 mg PO HS #30 tablet levETIRAcetam [Keppra] 500 mg PO BID #60 tablet Complete Home Medications List: Complete Home Medication List: Nitroglycerin 1 tab SL PRN PRN 06/28/12 rOPINIRole HCL [Requip] 3 mg PO HS 06/28/12 Tramadol HCl 100 mg PO Q6H PRN 07/15/12 Multivitamins [Multivitamin Wale] 1 cap PO DAILY 10/05/13 Metoprolol Tartrate [Lopressor] 25 mg PO DAILY #30 tablet 11/14/15 Insulin Detemir [Levemir] 25 units SQ BID 04/16/16 Insulin Lispro [Humalog] 8 unit SQ AC 04/16/16 Lisinopril [Prinivil] 10 mg PO BID 04/16/16 Insulin Lispro [Humalog] 0 - 6 units SQ AC #1 vial 05/27/16 Sertraline HCl [Zoloft] 25 mg PO DAILY 10/11/16 Pravastatin Sodium 40 mg PO HS #30 tablet 10/14/16 Clopidogrel Bisulfate [Plavix] 75 mg PO DAILY #30 tablet 10/17/16 levETIRAcetam [Keppra] 500 mg PO BID #60 tablet 10/17/16 Amb Orders for Discharge: Speech Therapy Eval and Treat Location: Determined By Patient
== END 2016-10-17 11:20 | disposition home or self-care (01) | DRG 64 ==
LOC: ER 17:51 → INTOOBSV 18:59 → MS 18:59 → OBSVTOIN 10-12 08:34
PROVIDERS: ADMIT Nurse Practitioner Critical Care Medicine; ATTEND Family Medicine
PROC: B246ZZ4 Ultrasonography of Right and Left Heart, Transesophageal (ICD-10-PCS; principal; 2016-10-12)
DX: I63.9 Cerebral infarction, unspecified (principal); G93.40 Encephalopathy, unspecified; N17.9 Acute kidney failure, unspecified; G45.9 Transient cerebral ischemic attack, unspecified; R41.82 Altered mental status, unspecified; R26.0 Ataxic gait; R53.1 Weakness; R56.9 Unspecified convulsions; E11.65 Type 2 diabetes mellitus with hyperglycemia; Z79.4 Long term (current) use of insulin
CPT/HCPCS: 36415; 70450; 70552; 70553; 71010; 80053; 80061; 81001; 82009; 83735; 84484; 85025; 85610; 85652; 85730; 87086; 92507; 92523; 93005; 93306; 93880; 95812; 97161; 97166; 99284; G0378

== ENCOUNTER 2016-12-19 10:26 | Emergency (ER) | payer MEDICARE, MEDICAID ==
[2016-12-19] MEDS ORDERED: NORMAL SALINE 1,000 ML IV PRN (11:29)
[2016-12-19] MEDS ORDERED: DIPHENOXYLATE HCL/ATROP SULF 2.5 MG TABLET PO ONE (11:30)
--- OUTSIDE RECORDS SUMMARY | 2016-12-19 11:32 | XMS REPORT | Continuity of Care Document ---
:1950 Author Organization [facility] Address [address] [place] [address] Phone [phone] Care Team Providers Name Role Phone Emanuel Shaferin Primary Care Provider [phone] Source Comments This disclosure is being made pursuant to the Care Everywhere program, applicable federal and state laws, and may not contain all informaitonavailable regarding this patient.[facility] ([facility] Active Allergies and Adverse Reactions Allergen Noted [...] insulin lispro inject 4 Units 10 mL 11 07/03/2012 Active (HumaLOG) 100 subcutaneously 3 unit/mL [...] of 12/20/2007 complication, not stated as uncontrolled Most Recent Encounters Date Type Specialty Providers Description 10/18/2016 - 10/19/2016 Hospital Encounter Patient Services Immunizations Name Dates Previously Given Next Due Pneumococcal Polysaccharide, PPSV23 (Pneumovax 23) 05/13/2010 Social History Tobacco Use Types Packs/Day Years Used Date Former Smoker Cigarettes Quit: 03/29/1971 Smokeless Tobacco: Never Used Alcohol Use Drinks/Week oz/Week Comments No Last Filed Vital Signs Vital Sign Reading Time Taken Blood Pressure 133/71 05/16/2013 3:02 PM CANINE DEPUTY Pulse 74 05/16/2013 3:02 PM [facility]INE DEPUTY Temperature 36.3 C (97.3 F) 05/16/2013 3:02 PM CANINE DEPUTY Respiratory Rate 16 07/18/2012 9:10 AM CANINE DEPUTY Height 1.575 m (5' 2") 07/15/2012 10:35 PM CANINE DEPUTY Weight 69.037 kg (152 lb 3.2 oz) 05/16/2013 3:02 PM CANINE DEPUTY Body Mass Index 27.83 05/16/2013 3:02 PM CANINE DEPUTY Oxygen Saturation 96% 07/18/2012 12:45 PM CANINE DEPUTY Plan of Care Patient Goal Type Goal [...] 05/19/2012 Mammogram 05/16/2014 05/16/2013 (Declined), 05/13/2010, 04/03/2008 Td Vaccine 05/19/2016 05/19/2006 Influenza Vaccine: Seasonal 02/02/2017 (Season Ended) Colonoscopy 05/19/2022 05/19/2012 (Declined) HCV Screening Completed 07/01/2012 Tdap Vaccine Addressed 05/16/2013 Overridden with the (Postponed) intention of not completing the topic Results from Last 3 Months Not on file
[2016-12-19 11:41] LABS: Hematocrit 28.9 % (37.0-47.0); Hemoglobin 9.7 gm/dL (12.5-16.0); Mean Cell Volume 84.8 fl (78-100); Mean Corpuscular Hemoglobin 28.4 pg (27-31); Mean Corpuscular Hgb Conc 33.6 g/dl (32-36); Mean Platelet Volume 9.1 fl (6.0-9.5); Neutrophil # 3.4 K/mm3 (1.3-6.0); Neutrophil % 61.1 % (42-75.0); Platelet Count 189 K/mm3 (150-450); Red Blood Count 3.41 M/mm3 (4.2-5.4); Red Cell Distribution Width 13.9 % (11.5-14.0); White Blood Count 5.5 K/mm3 (4.0-10.5)
[2016-12-19 11:56] LABS: Albumin * 3.1 gm/dl (3.4-5.0); Anion Gap 11.2 mmol/L (6.8-13.8); BUN/Creatinine Ratio 23.8 (9.0-21.6); Bilirubin, Total 0.3 mg/dL (0.0-1.1); Ca. Corrected For Albumin 9.4 mg/dL (8.4-10.2); Carbon Dioxide 26.9 mmol/L (24-32.6); Potassium 4.1 mmol/L (3.4-4.6); Total Protein 6.7 gm/dL (6.2-8.2)
--- NOTE | 2016-12-19 13:01 | ERNOTE ---
Medical Problem HPI - Narrative Date of Service: 12/19/16 - General Chief Complaint: General Assessment Time Seen by Provider: 12/19/16 11:20 - Immun/Allergies/Home Medications Immunizations: IMMUNIZATION HX Immunizations Up to Date Yes History of Influenza Vaccine No Hx Pneumococcal Vaccination No Allergies/Adverse Reactions: Allergies codeine [Codeine] Allergy (Unknown, Verified 12/19/16 10:41) Penicillins Allergy (Unknown, Verified 12/19/16 10:41) Sulfa (Sulfonamide Antibiotics) [Sulfa(Sulfonamide Antibiotics)] Allergy ( Unknown, Verified 12/19/16 10:41) ciprofloxacin Allergy (Verified 12/19/16 10:41) Wihxjpp-Cqk-Ogd Reductase Inhibitor Allergy (Verified 12/19/16 10:41) Home Medications: HOME MEDICATIONS Insulin Detemir [Levemir] 28 units SQ BID 04/16/16 [Last Taken Unknown] Pravastatin Sodium 40 mg PO HS #30 tablet 10/14/16 [Last Taken Unknown] Clopidogrel Bisulfate [Plavix] 75 mg PO DAILY #30 tablet 10/17/16 [Last Taken Unknown] Amlodipine/Atorvastatin [Amlodipine-Atorvast 5-20 mg] 1 each PO DAILY 12/19/16 [ Last Taken Unknown] Diphenoxylate HCl/Atrop Sulf [Lomotil] 2.5 mg PO QID PRN #40 tab 12/19/16 [Last Taken Unknown] Insulin Glargine,Hum.rec.anlog [Lantus] 10 units SC HS 12/19/16 [Last Taken Unknown] Ondansetron [Zofran Odt] 4 mg PO Q8H PRN #20 tab 12/19/16 [Last Taken Unknown] Pioglitazone HCl 30 mg PO DAILY 12/19/16 [Last Taken Unknown] Topiramate [Topamax] 25 mg PO BID 12/19/16 [Last Taken Unknown] risperiDONE [Risperdal] 0.25 mg PO HS 12/19/16 [Last Taken Unknown] - History of Present History Narrative: atkaden has had diarrhea and nausea since eating biscuits and gravy last pm Timing: constant Severity: moderate Modifying Factors - (Worsens): Present: eating Review of Systems - Review of Systems Constitutional: Present: fatigue, malaise EYE: Present: no symptoms reported ENT: Present: no symptoms reported Respiratory: Present: no symptoms reported Cardiology: Present: no symptoms reported Gastrointestinal/Abdominal: Present: nausea, vomiting, diarrhea, abdominal pain Genitourinary: Present: no symptoms reported Musculoskeletal: Present: no symptoms reported Skin: Present: no symptoms reported Neurological: Present: no symptoms reported Endocrine: Present: no symptoms reported - Patient's Past Medical History Patient History - Medical: Diabetes Type 2 Insulin Dependent, Depression, Renal Disease, Other Patient History - Cardiac/Respiratory: Coronary Heart Disease, CVA/Stroke, Hypertension, Hyperlipidemia, Pneumonia Patient History - Cancer: No Hx of Cancer Patient History - Surgical Procedures: Appendectomy, Cholecystectomy, Cardiac stent, Hysterectomy Patient History - Other: None LMP (females 10-50): Menopausal - Family History Family History:: no untoward family reactions to anesthesia, no familial bleeding tendencies, no family history of clotting disorders, no family history of premature - Social History Living Situations: home Abuse History: No History of abuse Psych History: Hx of Anxiety, Hx of Depression Does anyone smoke in the home?: No Smoking Status: Former smoker Have you smoked in the past 12 months: No Do you dip or chew tobacco: No Patient requests Smoking Cessation Consult: No Alcohol Use: none Drug Use: none - Immunizations Immunizations Up to Date: Yes Hx Pneumococcal Vaccination: No History of Influenza Vaccine: No Physical Exam - Physical Exam General Appearance: Present: alert, mild distress, anxious Eye Exam: Normal inspection: bilateral, PERRL: bilateral, EOMI: bilateral Ears, Nose, Throat: Present: normal ENT inspection Neck: Present: normal inspection, nontender Respiratory: Present: no respiratory distress, normal breath sounds, no accessory muscle use, chest nontender, lungs clear Cardiovascular/Chest: Present: regular rate, rhythm, no murmur, normal peripheral pulses Peripheral Pulses: N=norm/S=strong/W=weak/B=bound/A=absent: Carotid (R): Normal , Carotid (L): Normal, Radial (R): Normal, Radial (L): Normal, Femoral (R): Normal, Femoral (L): Normal, Dorsalis-pedis (R): Normal, Dorsalis-pedis (L): Normal Gastrointestinal/Abdominal: Present: tenderness, abnormal bowel sounds, distended Back Exam: Present: normal inspection, normal range of motion, no CVA tenderness Extremity Exam: Present: normal inspection, non-tender, normal range of motion, no edema DTR: N=norm/NB=norm/brisk/A=abs/DD=dull/dimin/HC=hyperactive: Bicep (R): Normal , Bicep (L): Normal, Tricep (R): Normal, Tricep (L): Normal, Knee (R): Normal, Knee (L): Normal, Ankle (R): Normal, Ankle (L): Normal Skin Exam: Present: normal color, warm/dry Lymphatic Exam: Present: no adenopathy ED Progress - Results and Orders Patient's Lab Results:: I have reviewed the patient's lab results. - Vital Signs Patient's Vital Signs:: I have reviewed the patient's vital signs. Vital Signs: Vital Signs 12/19/16 10:36 Temperature 36.6 C Pulse Rate 64 Respiratory 18 Rate Blood Pressure 110/56 O2 Sat by Pulse 100 Oximetry - Progress/Reassessment Chief Complaint: General Assessment Progress:: Improved Progress Note-Subjective: 12/19/16 12:57 patient refuses iv fluids,labs and x-rays reviewed with patient, to be dismissed Departure - Departure Clinical Impression: Gastroenteritis Disposition: Home self-care Condition: Fair Instructions: Viral Gastroenteritis, Adult, [id number] Referrals: Anabel Hdialgo MD [Primary Care Provider] - Prescriptions: Diphenoxylate HCl/Atrop Sulf [Lomotil] 2.5 mg PO QID PRN #40 tab PRN Reason: Diarrhea Ondansetron [Zofran Odt] 4 mg PO Q8H PRN #20 tab PRN Reason: Nausea
[2016-12-19 13:08] VITALS: BP 137/65
== END 2016-12-19 13:09 | disposition home or self-care (01) ==
LOC: ER 10:26
DX: A08.4 Viral intestinal infection, unspecified (principal); E11.9 Type 2 diabetes mellitus without complications; Z79.4 Long term (current) use of insulin; F32.89 Other specified depressive episodes; Z86.73 Personal history of transient ischemic attack (TIA), and cerebral infarction without residual deficits; I50.9 Heart failure, unspecified; I10 Essential (primary) hypertension; Z53.29 Procedure and treatment not carried out because of patient's decision for other reasons

== ENCOUNTER 2017-02-26 12:22 | Emergency (ER) | payer MEDICARE, MEDICAID ==
[2017-02-26 13:07] LABS: Hemoglobin 10.5 gm/dL (12.5-16.0); Mean Cell Volume 83.8 fl (78-100); Mean Corpuscular Hemoglobin 29.3 pg (27-31); Neutrophil # 5.9 K/mm3 (1.3-6.0); Neutrophil % 77.1 % (42-75.0); Platelet Count 167 K/mm3 (150-450); Red Blood Count 3.58 M/mm3 (4.2-5.4); Red Cell Distribution Width 13.3 % (11.5-14.0); White Blood Count 7.7 K/mm3 (4.0-10.5)
[2017-02-26] MEDS ORDERED: NORMAL SALINE 1,000 ML IV ONE (13:12)
[2017-02-26 13:24] LABS: Troponin I 0.046 ng/ml (0.00-0.10)
[2017-02-26 13:31] LABS: Anion Gap 11.9 mmol/L (6.8-13.8); BUN/Creatinine Ratio 17.1 (9.0-21.6); Bilirubin, Total 0.7 mg/dL (0.0-1.1); Ca. Corrected For Albumin 9.4 mg/dL (8.4-10.2); Calcium * 8.9 mg/dL (7.9-10.9); Carbon Dioxide 26.5 mmol/L (24-32.6); Potassium 4.4 mmol/L (3.4-4.6); Total Protein 6.2 gm/dL (6.2-8.2)
[2017-02-26 14:16] LABS: Urine Bilirubin Negative (NEGATIVE); Urine Blood 25 /ul (NEGATIVE); Urine Ketone Negative (NEGATIVE); Urine Nitrite Negative (NEGATIVE); Urine Protein 100 mg/dL (NEGATIVE); Urine Urobilinogen Normal (NORMAL)
[2017-02-26 14:28] LABS: Urine Appearance Cloudy; Urine Bacteria TRACE; Urine Color Yellow; Urine RBC 0-5 /hpf (0-5); Urine WBC 0-5 /hpf (0-5)
[2017-02-26] MEDS ORDERED: ACETAMINOPHEN 500 MG TABLET PO ONE (14:41)
[2017-02-26 15:34] VITALS: BP 122/51
--- NOTE | 2017-02-26 15:54 | ERNOTE ---
Syncope ER HPI Date of Service: 02/26/17 Stated Complaint: FUZZY FEELING IN HEAD Time Seen by Provider: 02/26/17 12:39 Source: patient Exam Limitations: no limitations Immunizations: IMMUNIZATION HX Immunizations Up to Date Yes History of Influenza Vaccine No Hx Pneumococcal Vaccination No Allergies/Adverse Reactions: Allergies codeine [Codeine] Allergy (Unknown, Verified 02/26/17 12:34) Penicillins Allergy (Unknown, Verified 02/26/17 12:34) Sulfa (Sulfonamide Antibiotics) [Sulfa(Sulfonamide Antibiotics)] Allergy ( Unknown, Verified 02/26/17 12:34) ciprofloxacin Allergy (Verified 02/26/17 12:34) Gzwqarq-Lop-Dbi Reductase Inhibitor Allergy (Verified 02/26/17 12:34) Home Medications: HOME MEDICATIONS Pravastatin Sodium 40 mg PO HS #30 tablet 10/14/16 [Last Taken Unknown] Clopidogrel Bisulfate [Plavix] 75 mg PO DAILY #30 tablet 10/17/16 [Last Taken Unknown] Amlodipine/Atorvastatin [Amlodipine-Atorvast 5-20 mg] 1 each PO DAILY 12/19/16 [ Last Taken Unknown] Insulin Glargine,Hum.rec.anlog [Lantus] 10 units SC HS 12/19/16 [Last Taken Unknown] Topiramate [Topamax] 25 mg PO BID 12/19/16 [Last Taken Unknown] Citalopram Hydrobromide [Celexa] 20 mg PO DAILY 02/26/17 [Last Taken Unknown] Ibuprofen 800 mg PO PRN PRN 02/26/17 [Last Taken Unknown] Nitrofurantoin/Nitrofuran Mac [Macrobid] 100 mg PO Q12H #20 cap 02/26/17 [Last Taken Unknown] Nitroglycerin 0.4 mg SL PRN PRN 02/26/17 [Last Taken Unknown] Pioglitazone HCl [Actos] 30 mg PO DAILY 02/26/17 [Last Taken Unknown] - History of Present Illness Narrative: Patient presents to the ED for a fall. She relates she was at home, lives alone. She notes that he BS goes low in the mornings. She has trouble with her teeth so does not eact much. She relates this morning she had not eaten and was on the telephone with her boyfriend Mj. She became fuzzy like when her blood sugar gets low and went to go make cereal when she became weak and fell. She relates that she fell onto her back. She may have had a brief LOC but remembers going down. No clear syncope. She relates that her right rims, low back hurt from the fall. She was able to get up and eat some cereal and get to the chair. Her daughter called the ambulance because she lives out of town and could't get in to check on her. No CP or abdominal pain. no fever or dysuria. She tells me she has had significant weight loss since the of her and recently she was told to start Celexa by Dr Hidalgo for depression but did not want to do that because she is afraid it will make her sleepy and she will sleep in the morning when her blood sugars tend to go low like she felt this morning. She has chronic SOB but no acute SOB. Symptoms prior to episode: Present: light headedness, other - felt liek BS low Activity at time of episode: Present: standing Character of event: Present: brief (seconds) Current Symptoms: Absent: chest pain, shortness of breath, abd pain, nausea, headache Prior Treament: Denies: recently hospitalized Review of Systems - Review of Systems Constitutional: Absent: fever ENT: Absent: sore throat Respiratory: Absent: cough Cardiology: Absent: chest pain Gastrointestinal/Abdominal: Absent: abdominal pain Genitourinary: Absent: dysuria Musculoskeletal: Present: See HPI Neurological: Absent: weakness - Patient's Past Medical History Patient History - Medical: Diabetes Type 2 Insulin Dependent, Depression, Renal Disease, Other Patient History - Cardiac/Respiratory: Coronary Heart Disease, CVA/Stroke, Hypertension, Hyperlipidemia, Pneumonia Patient History - Cancer: No Hx of Cancer Patient History - Surgical Procedures: Appendectomy, Cholecystectomy, Cardiac stent, Hysterectomy Patient History - Other: None LMP (females 10-50): Menopausal - Social History Living Situations: alone Abuse History: No History of abuse Psych History: Hx of Anxiety, Hx of Depression Does anyone smoke in the home?: No Have you smoked in the past 12 months: No Alcohol Use: none Drug Use: none - Immunizations Immunizations Up to Date: Yes Hx Pneumococcal Vaccination: No History of Influenza Vaccine: No Physical Exam - Physical Exam General Appearance: Present: alert, no apparent distress Head Exam: Present: normal inspection, no evidence of injury. Absent: active bleeding, Malhotra's Sign Eye Exam: Normal inspection: left - she had recent eye injection, subconjuntival hemorrhage left, this is not from today, but from injection this Wednesday, PERRL: bilateral, EOMI: bilateral Ears, Nose, Throat: Present: normal ENT inspection. Absent: pharyngeal erythema Neck: Present: normal inspection, nontender, other - no psoterior C-spine tenderness.. Absent: tender posterior midline Respiratory: Present: no respiratory distress, normal breath sounds, no accessory muscle use, lungs clear Cardiovascular/Chest: Present: regular rate, rhythm, normal peripheral pulses, other - Lateral/posterior right rib tenderness, diffuse Gastrointestinal/Abdominal: Present: normal bowel sounds, nontender, soft. Absent: no organomegaly Back Exam: Present: normal inspection, other - no thoracic spine tendenres.s Bilateral lumbar paraspinal musclar tendenress. no midline tenderness. 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 Hx of stroke. Absent: facial droop, motor weakness Skin Exam: Present: normal color, warm/dry, other - no laceration ED Progress - Results and Orders Patient's Lab Results:: I have reviewed the patient's lab results. - Vital Signs Patient's Vital Signs:: I have reviewed the patient's vital signs. Vital Signs: Vital Signs 02/26/17 02/26/17 02/26/17 12:23 12:47 13:02 Temperature 36.1 C L Pulse Rate 56 L 55 L 61 Respiratory 12 14 10 L Rate Blood Pressure 153/53 145/62 151/59 O2 Sat by Pulse 99 99 Oximetry 02/26/17 02/26/17 02/26/17 13:39 13:49 13:53 Temperature Pulse Rate 57 L 62 62 Respiratory 12 11 L Rate Blood Pressure 157/63 153/57 O2 Sat by Pulse 98 100 Oximetry 02/26/17 02/26/17 02/26/17 14:10 14:33 14:50 Temperature Pulse Rate 58 L 58 L 61 Respiratory 12 Rate Blood Pressure 153/56 153/57 149/65 O2 Sat by Pulse 98 99 98 Oximetry 02/26/17 02/26/17 02/26/17 15:10 15:18 15:33 Temperature Pulse Rate 66 16 L 66 Respiratory 14 Rate Blood Pressure 127/54 122/51 O2 Sat by Pulse 100 100 Oximetry - EKG EKG read: Interp. by me EKG Comments: Sinus rate 57. Non-specific changes, no STEMI - X-Ray X-Ray #1 X-Ray: chest Interpretation: Interp. by me X-ray Comments: I reviwed official CXR report X-Ray #2 X-Ray: pelvis Interpretation: Interp. by me X-ray Comments: I reviewed official radiology report X-Ray #3 X-Ray: lumbosacral Interpretation: Interp. by me X-ray Comments: I reviewed official radiology report - CT/Ultrasound CT/Ultrasound Narrative: CT head, official radiology report reviewed. - Progress/Reassessment Chief Complaint: Syncopal Episode Progress Note-Subjective: 02/26/17 15:52 patient ate here and was ambulatory. Had some decreased BP with standig and fluids given. After fluids her BP still came down but she was asymptomatic with this. No clear syncope here. Clinically and by labs nothing to suggest PE , ACS, aortic dissection or other clear acute life threat. She would like to go home, daughter will stay with her. I made her an appt for Wednesday and this was discussed with her. Will treat the UTI but no findings od sepsis or toxicity. i diuscssed warning sings and reasons to return as well as the need for close f/u. Departure Clinical Impression: Fall, UTI (urinary tract infection), Musculoskeletal pain - Departure Disposition: Home self-care Condition: Stable Instructions: Musculoskeletal Pain Additional Instructions: Follow-up with Dr Hidalgo 10:45 WednesdayMarch 01. Return if you change your mind about observation, develop chest pain, trouble breathing or if your condition worsens or changes in any way. Prescriptions: Nitrofurantoin/Nitrofuran Mac [Macrobid] 100 mg PO Q12H #20 cap
== END 2017-02-26 15:55 | disposition home or self-care (01) ==
LOC: ER 12:22
DX: N39.0 Urinary tract infection, site not specified (principal); M79.1 Myalgia; W18.39XA Other fall on same level, initial encounter; Y93.89 Activity, other specified; Y92.000 Kitchen of unspecified non-institutional (private) residence as the place of occurrence of the external cause; E11.9 Type 2 diabetes mellitus without complications; Z79.4 Long term (current) use of insulin; F32.89 Other specified depressive episodes; I25.2 Old myocardial infarction; Z86.73 Personal history of transient ischemic attack (TIA), and cerebral infarction without residual deficits; I10 Essential (primary) hypertension; E78.5 Hyperlipidemia, unspecified

== ENCOUNTER 2020-02-26 12:58 | Inpatient (IN) ==
--- NOTE | 2020-02-26 13:30 | ERNOTE ---
Abdominal HPI - General Chief Complaint: Abdominal Pain Time Seen by Provider: 02/26/20 13:00 Source: patient Exam Limitations: no limitations - Immun/Allergies/Home Medications Immunizatons: IMMUNIZATION HX Immunizations Up to Date No History of Influenza Vaccine No Hx Pneumococcal Vaccination No Allergies/Adverse Reactions: Allergies Sulfa (Sulfonamide Antibiotics) [Sulfa(Sulfonamide Antibiotics)] Allergy (Severe, Verified 02/26/20 13:12) hives, anaphylactic shock codeine [Codeine] Allergy (Unknown, Verified 02/26/20 13:12) chest pain Penicillins Allergy (Unknown, Verified 02/26/20 13:12) RASH Khdqjdc-Ows-Aop Reductase Inhibitor Allergy (Verified 02/26/20 13:12) Muscle Pain ciprofloxacin Adverse Reaction (Unknown, Verified 02/26/20 13:12) nausea, vomiting, almost passed out Home Medications: HOME MEDICATIONS Nitroglycerin 0.4 mg SUBLINGUAL PRN PRN 02/26/17 [Last Taken Unknown] topiramate 25 mg tablet 25 mg PO BID #180 tab 12/29/18 [Last Taken Unknown] insulin glargine 100 unit/mL subcutaneous solution 25 unit SUBCUT HS #10 ml 08/16/19 [Last Taken Unknown] difluprednate 0.05 % eye drops 1 drp OP QID 10/05/19 [Last Taken Unknown] amlodipine 5 mg tablet 5 mg PO DAILY #90 tab 12/25/19 [Last Taken Unknown] clopidogrel 75 mg tablet 75 mg PO DAILY #90 tab 12/25/19 [Last Taken Unknown] insulin syringe-needle U-100 0.3 mL 31 gauge x 5/16" See Rx Instructions .ROUTE .COMPLEX #100 unknown measurement unit code: each 01/01/20 [Last Taken Unknown] pravastatin 40 mg tablet 40 mg PO HS #90 tab 02/16/20 [Last Taken Unknown] - History of Present Illness Narrative: Patient is coming to the ER for chest pain. She states that she was just sitting in her bed when she started to have severe left-sided chest pain which lasted about 10 minutes, she vomited once and then the pain is resolved. She states that she has been having diarrhea for "quite a while", eventually she complains about upper abdominal pain as well. Her symptoms and descriptions are rather vague. She later admits to memory problems and dementia Date (Duration): 02/26/20 Timing: intermittent, resolved prior to arrival Quality: severe Associated Symptoms: Present: nausea. Absent: diarrhea-gross blood, fever/chills Prior Abdominal Problems: Present: none Prior Treatment: Absent: recently seen Review of Systems - Review of Systems Constitutional: Absent: recent illness, fever ENT: Present: no symptoms reported Respiratory: Absent: shortness of breath, cough Cardiology: Present: See HPI, chest pain Gastrointestinal/Abdominal: Present: See HPI, vomiting, abdominal pain Genitourinary: Present: no symptoms reported Musculoskeletal: Absent: back pain Neurological: Absent: headache 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, grade 1 CAD (coronary artery disease) Onset Date: Unknown Depression Onset Date: Unknown Diabetes mellitus Onset Date: Unknown Hypercholesterolemia Onset Date: Unknown senior care (current) use of insulin Neuropathy Onset Date: Unknown Renal failure Onset Date: Unknown Restless legs Onset Date: Unknown Seizure Onset Date: Unknown complex partial seizures Type 2 diabetes mellitus with moderate nonproliferative diabetic retinopathy with macular edema, right eye Type 2 diabetes mellitus with proliferative diabetic retinopathy with macular edema, left eye Heart attack Onset Date: ~07/2012 Hypertension Onset Date: Unknown Stroke Onset Date: 10/18/16 UTI (urinary tract infection) Onset Date: Unknown Surgical History: Surgical History (Last Reviewed 02/26/20 @ 17:50 by Jeane Rubio MD) H/O knee surgery Onset Date: ~1989 David-right knee-removal of cartilage H/O tooth extraction Onset Date: Unknown H/O: hysterectomy Onset Date: ~1976 Dr Cash-vaginal History of bladder surgery Onset Date: Unknown History of cataract surgery Onset Date: 11/20/13 10/09/13-left. 11/20/13-right History of coronary angiogram Onset Date: ~07/2012 History of heart artery stent Onset Date: ~2010 2010, 2011-distal BRICK TENDER w/PTCA of ostial RPDA History of surgery on wrist Onset Date: ~1998 Dr Hernandez-left wrist fx repair History of temporal artery biopsy Onset Date: 09/29/18 Qoslq-fwnyi-oylpgeiz consistent w/treated temporal (giant cell) arteritis. Hx of cholecystectomy Onset Date: ~1976 [place] Family History: Family History (Last Reviewed 02/26/20 @ 17:46 by Sebastien Eli RN) Father , age 47-ND Diabetes Mother , age 67-ND Myocardial infarction ND during insertion of pacemaker Diabetes Sister , age 67-complications from diabetes Diabetes Heart disease Sister Diabetes 2 sisters Brother , age 52-ND Cancer Hodgkins lymphoma Brother Heart disease Myocardial infarction Other No pertinent family history Social History: (Last Reviewed 02/26/20 @ 17:46 by Sebastien Eli RN) Social History: Marital status: / household members: other current occupational status: retired Highest education level completed: high school graduate Service: No Tobacco: Smoking Status: Never smoker Alcohol: alcohol intake: current Substance Use: substance use type: does not use Dietary Habits: caffeine: Yes Personal Safety: victim of physical abuse: No victim of emotional abuse: No Physical Exam - Physical Exam General Appearance: Present: wd/wn, alert, no apparent distress Head Exam: Present: normal inspection, no evidence of injury Eye Exam: Normal inspection: bilateral, PERRL: bilateral Respiratory: Present: no respiratory distress, normal breath sounds, no accessory muscle use, lungs clear Cardiovascular/Chest: Present: regular rate, rhythm, no murmur Gastrointestinal/Abdominal: Present: normal bowel sounds, nondistended, soft, tenderness - epigstric Extremity Exam: Present: no edema Neurological Exam: Present: alert, oriented, normal mood/affect Skin Exam: Present: normal color, warm/dry Progress - Results and Orders Patient's Lab Results:: I have reviewed the patient's lab results. - Vital Signs Patient's Vital Signs:: I have reviewed the patient's vital signs. Vital Signs: Vital Signs 02/26/20 13:01 Temperature 37.0 C Pulse Rate 54 L Respiratory Rate 10 L Blood Pressure 136/97 H O2 Sat by Pulse Oximetry 93 - EKG EKG #1 EKG: NSR, other - TWI V4-6 EKG read: Interp. by me - X-Ray X-Ray #1 X-Ray: abdomen - non specific bowel gas pattern Interpretation: Reviewed by me X-Ray #2 X-Ray: chest - possible lower lung infiltrate Interpretation: Reviewed by me - Progress/Reassessment Chief Complaint: Abdominal Pain Progress Note-Subjective: 02/26/20 14:34 discussed test results and diagnosis of possible pneumonia with patient, agreed to admission she states that she is very stressed out as she was diagnosed with dementia O2 sat 90-92% on RA at rest 02/26/20 14:[address] Garcia 02/26/20 15:[address] Garcia 02/26/20 15:[address] Garcia, shefali to admit for pneumonia and start rocephin and zithromax Departure Clinical Impression: Pneumonia Qualifiers: Pneumonia type: due to unspecified organism Laterality: bilateral Lung location: lower lobe of lung Qualified Code(s): J18.9 - Pneumonia, unspecified organism Renal failure (ARF), acute on chronic Qualifiers: Acute renal failure type: unspecified Chronic kidney disease stage: unspecified stage Qualified Code(s): N17.9 - Acute kidney failure, unspecified - Departure Disposition: Still a patient Condition: Stable
[2020-02-26 13:33] LABS: Hematocrit 30.1 % (37.0-47.0); Hemoglobin 9.9 gm/dL (12.5-16.0); Mean Corpuscular Hemoglobin 28.9 pg (27-31); Mean Corpuscular Hgb Conc 32.9 g/dl (32-36); Mean Platelet Volume 10.7 fl (8-12.5); Neutrophil # 2.8 K/mm3 (1.3-6.0); Neutrophil % 65.4 % (42-75.0); Platelet Count 119 K/mm3 (150-450); Red Blood Count 3.42 M/mm3 (4.2-5.4); White Blood Count 4.3 K/mm3 (4.0-10.5)
[2020-02-26 13:53] LABS: Albumin * 2.4 gm/dl (3.4-5.0); Anion Gap 14.4 mmol/L (6.8-13.8); BUN/Creatinine Ratio 15.2 (9.0-21.6); Bilirubin, Total 0.4 mg/dL (0.0-1.1); Ca. Corrected For Albumin 9.1 mg/dL (8.4-10.2); Calcium * 8.1 mg/dL (7.9-10.9); Carbon Dioxide 23.2 mmol/L (24-32.6); Potassium 4.6 mmol/L (3.4-4.6); Total Protein 5.7 gm/dL (6.2-8.2); Troponin I 0.041 ng/mL (0.00-0.10)
[2020-02-26] MEDS ORDERED: cefTRIAXone SODIUM 1,000 MG/100 ML BAG IV ONE (15:36)
[2020-02-26 15:41] LABS: Urine Bilirubin Negative (NEGATIVE); Urine Ketone Negative (NEGATIVE); Urine Nitrite Negative (NEGATIVE); Urine Protein >=300 mg/dL (NEGATIVE); Urine Urobilinogen Normal (NORMAL); Urine pH 6.5 pH (5.0-7.0)
[2020-02-26] MEDS ORDERED: AZITHROMYCIN 250 MG TABLET PO STA (16:03)
[2020-02-26 16:04] LABS: Urine Blood 5 /ul (NEGATIVE); Urine Color Yellow
[2020-02-26 16:05] LABS: Urine Appearance Slightly Cloudy (CLEAR); Urine Bacteria 4+; Urine RBC 0-5 /hpf (0-5); Urine WBC 25-50 /hpf (0-5)
--- NOTE | 2020-02-26 18:34 | HP ---
Chief Complaint - Chief Complaint Date of Service: 02/26/20 Time of Service: 17:47 Chief Complaint: Chest pain day History of Present Illness: 70-year-old female with a past medical history of CAD, diabetes mellitus, depression, hypertension, hypercholesterolemia, hypertensive retinopathy of both eyes, seizure, restless legs, neuropathy, myocardial infarct presents from home with complaints of left-sided chest pain radiating to her abdomen. Symptoms were associated with shortness of breath and a mild cough. She states she has been having diarrhea at home. Denies fevers and chills. She presented to the emergency department and was found to have an oxygen saturation of 88 to 93% on room air, no leukocytosis, elevated creatinine of 2.44, her baseline creatinine is typically 1.4-1.68, GFR of 21 and her baseline creatinine is typically in the mid 30s. She was also found to be positive for COVID-19 and had a positive UA. She was started on ceftriaxone and azithromycin in the emergency department. Chest x-ray is positive for consolidation in the lateral aspect of the left lower lobe in the posterior inferior aspect of the right lower lobe concerning for pneumonia, abdominal x-ray showed nonspecific bowel gas pattern. She is being admitted for pneumonia. 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, grade 1 CAD (coronary artery disease) Onset Date: Unknown Depression Onset Date: Unknown Diabetes mellitus Onset Date: Unknown Hypercholesterolemia Onset Date: Unknown manager intermediate (current) use of insulin Neuropathy Onset Date: Unknown Renal failure Onset Date: Unknown Restless legs Onset Date: Unknown Seizure Onset Date: Unknown complex partial seizures Type 2 diabetes mellitus with moderate nonproliferative diabetic retinopathy with macular edema, right eye Type 2 diabetes mellitus with proliferative diabetic retinopathy with macular edema, left eye Heart attack Onset Date: ~07/2012 Hypertension Onset Date: Unknown Stroke Onset Date: 10/18/16 UTI (urinary tract infection) Onset Date: Unknown Surgical History: Surgical History (Last Reviewed 02/26/20 @ 17:50 by Jeane Rubio MD) H/O knee surgery Onset Date: ~1989 David-right knee-removal of cartilage H/O tooth extraction Onset Date: Unknown H/O: hysterectomy Onset Date: ~1976 Dr Cash-vaginal History of bladder surgery Onset Date: Unknown History of cataract surgery Onset Date: 11/20/13 10/09/13-left. 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 Hx of cholecystectomy Onset Date: ~1976 Jameel Family History: Family History (Last Reviewed 02/26/20 @ 17:46 by Sebastien Eli RN) Father , age 47-[place] Diabetes Mother , age 67-[place] Myocardial infarction [place] during insertion of pacemaker Diabetes Sister , age 67-complications from diabetes Diabetes Heart disease Sister Diabetes 2 sisters Brother , age 52-[place] Cancer Hodgkins lymphoma Brother Heart disease Myocardial infarction Other No pertinent family history Social History: (Last Reviewed 02/26/20 @ 17:46 by Sebastien Eli RN) Social History: Marital status: / household members: other current occupational status: retired Highest education level completed: high school graduate Service: No Tobacco: Smoking Status: Never smoker Alcohol: alcohol intake: current Substance Use: substance use type: does not use Dietary Habits: caffeine: Yes Personal Safety: victim of physical abuse: No victim of emotional abuse: No Review Of Systems (GEN) - Review of Systems Generalized/Overall Review: Absent: Chills, Fever Respiratory: Present: Cough, Shortness of Breath Cardiac: Present: Chest Pain Abdominal: Present: Vomiting, Abdominal Pain, Diarrhea Misc: All systems neg except as marked Immunizations: IMMUNIZATION HX Immunizations Up to Date No History of Influenza Vaccine No Hx Pneumococcal Vaccination No Allergies/Adverse Reactions: Allergies Allergy/AdvReac Type Severity Reaction Status Date / Time Sulfa (Sulfonamide Allergy Severe hives, Verified 02/26/20 13:12 Antibiotics) anaphylactic [Sulfa(Sulfonamide shock Antibiotics)] codeine [Codeine] Allergy Unknown chest pain Verified 02/26/20 13:12 Penicillins Allergy Unknown RASH Verified 02/26/20 13:12 Zklrahr-Uvd-Tfl Reductase Allergy Muscle Pain Verified 02/26/20 13:12 Inhibitor ciprofloxacin AdvReac Unknown nausea, Verified 02/26/20 13:12 vomiting, almost passed out Home Medications: HOME MEDICATIONS topiramate 25 mg tablet 25 mg PO BID #180 tab 12/29/18 [Last Taken Unknown] insulin glargine 100 unit/mL subcutaneous solution 25 unit SUBCUT HS #10 ml 08/16/19 [Last Taken Unknown] difluprednate 0.05 % eye drops 1 drp OP QID 10/05/19 [Last Taken Unknown] amlodipine 5 mg tablet 5 mg PO DAILY #90 tab 12/25/19 [Last Taken Unknown] clopidogrel 75 mg tablet 75 mg PO DAILY #90 tab 12/25/19 [Last Taken Unknown] insulin syringe-needle U-100 0.3 mL 31 gauge x 5/16" See Rx Instructions .ROUTE .COMPLEX #100 unknown measurement unit code: each 01/01/20 [Last Taken Unknown] pravastatin 40 mg tablet 40 mg PO HS #90 tab 02/16/20 [Last Taken Unknown] Memantine HCl 5 mg PO BID 02/26/20 [Last Taken Unknown] Exam - Exam Vital Signs: Vital Signs - Last Taken Temp 36.8 C 02/26/20 17:43 Pulse 64 02/26/20 17:43 Resp 22 H 02/26/20 17:43 BP 147/60 02/26/20 17:43 Pulse Ox 100 02/26/20 17:43 Constitutional: Present: Alert, Cooperative, Well developed, Well nourished, No distress, Elderly ENT Exam: Present: hearing grossly normal, moist mucous membranes Eye Exam: bilateral eye: normal inspection, EOMI Neck: Present: non-tender, supple. Absent: lymphadenopathy (R), lymphadenopathy (L) Back Exam: Present: normal inspection, no CVA tenderness Respiratory: Present: no respiratory distress, no accessory muscle use, crackles - Mild crackles in bilateral bases, No wheezing. Absent: rhonchi Cardiovascular/Chest: Present: normal peripheral pulses, regular rate, rhythm, no murmur Peripheral Pulses: dorsalis-pedis (R): 1+, dorsalis-pedis (L): 1+ Abdomen: Present: Normal bowel sounds, soft, nontender Extremity: Present: non-tender, normal inspection, no pedal edema Skin Exam: Present: normal color, warm/dry Neurologic: Present: alert, normal mood/affect Appearance: Present: appropriate appearance, appropriate insight Eye contact: Present: cooperative, good eye contact Thoughts: Present: normal mood /affect Diagnostic Studies: Abnormal Lab Results 02/26/20 02/26/20 02/26/20 Range/Units 12:25 12:25 15:17 RBC 3.42 L (4.2-5.4) M/mm3 Hgb 9.9 L (12.5-16.0) gm/dL Hct 30.1 L (37.0-47.0) % Plt Count 119 L (150-450) K/mm3 Immature Gran % (Auto) 1.20 H (0.001-0.429) % Immature Gran # (Auto) 0.05 H (0.000-0.0310) K/mm3 Lymphocytes # 1.19 L (1.5-3.5) k/mm3 Carbon Dioxide 23.2 L (24-32.6) mmol/L Anion Gap 14.4 H (6.8-13.8) mmol/L BUN 37 H (3-23) mg/dL Creatinine 2.44 H D (0.4-1.4) mg/dL Est GFR (Non-Af Amer) 21 L (60-130) mL/min Random Glucose 165 H (70-110) mg/dL AST 123 H (0-48) U/L Total Protein 5.7 L (6.2-8.2) gm/dL Albumin 2.4 L (3.4-5.0) gm/dl Lipase 54 L (73-393) U/L Urine Protein >=300 H (NEGATIVE) mg/dL Urine Glucose (UA) 100 H (NEGATIVE) mg/dL Urine Blood 5 H (NEGATIVE) /ul Prot Sulfosalicylic Acd 4+ H (0) mg/dL Ur Leukocyte Esterase 100 H (NEGATIVE) /ul Urine WBC 25-50 H (0-5) /hpf Ur Epithelial Cells 10-25 H (0-5) /hpf Urine Bacteria 4+ H (NONE) SARS-CoV-2 (PCR) (ND) 02/26/20 Range/Units 15:18 RBC (4.2-5.4) M/mm3 Hgb (12.5-16.0) gm/dL Hct (37.0-47.0) % Plt Count (150-450) K/mm3 Immature Gran % (Auto) (0.001-0.429) % Immature Gran # (Auto) (0.000-0.0310) K/mm3 Lymphocytes # (1.5-3.5) k/mm3 Carbon Dioxide (24-32.6) mmol/L Anion Gap (6.8-13.8) mmol/L BUN (3-23) mg/dL Creatinine (0.4-1.4) mg/dL Est GFR (Non-Af Amer) (60-130) mL/min Random Glucose (70-110) mg/dL AST (0-48) U/L Total Protein (6.2-8.2) gm/dL Albumin (3.4-5.0) gm/dl Lipase (73-393) U/L Urine Protein (NEGATIVE) mg/dL Urine Glucose (UA) (NEGATIVE) mg/dL Urine Blood (NEGATIVE) /ul Prot Sulfosalicylic Acd (0) mg/dL Ur Leukocyte Esterase (NEGATIVE) /ul Urine WBC (0-5) /hpf Ur Epithelial Cells (0-5) /hpf Urine Bacteria (NONE) SARS-CoV-2 (PCR) Detected H (ND) Laboratory Results WBC 4.3 K/mm3 (4.0-10.5) 02/26/20 12:25 RBC 3.42 M/mm3 (4.2-5.4) L 02/26/20 12:25 Hgb 9.9 gm/dL (12.5-16.0) L 02/26/20 12:25 Hct 30.1 % (37.0-47.0) L 02/26/20 12:25 MCV 88.0 fl (78-100) 02/26/20 12:25 MCH 28.9 pg (27-31) 02/26/20 12:25 MCHC 32.9 g/dl (32-36) 02/26/20 12:25 RDW 13.0 % (11.5-14.0) 02/26/20 12:25 Plt Count 119 K/mm3 (150-450) L 02/26/20 12:25 MPV 10.7 fl (8-12.5) 02/26/20 12:25 Immature Gran % (Auto) 1.20 % (0.001-0.429) H 02/26/20 12:25 Immature Gran # (Auto) 0.05 K/mm3 (0.000-0.0310) H 02/26/20 12:25 Neutrophils % 65.4 % (42-75.0) 02/26/20 12:25 Lymphocytes % 28.0 % (20-51) 02/26/20 12:25 Monocytes % 5.4 % (0.0-9) 02/26/20 12:25 Eosinophils % 0.0 % (0.0-3.0) 02/26/20 12:25 Basophils % 0.0 % (0.0-1.0) 02/26/20 12:25 Nucleated RBC % 0.0 k/mm3 (0-1) 02/26/20 12:25 Neutrophils # 2.8 K/mm3 (1.3-6.0) 02/26/20 12: Lymphocytes # 1.19 k/mm3 (1.5-3.5) L 02/26/20 12:25 Monocytes # 0.2 k/mm3 (0.0-1.0) 02/26/20 12:25 Eosinophils # 0.0 k/mm3 (0.0-0.7) 02/26/20 12:25 Absolute Basophils 0.0 k/mm3 (0.0-0.1) 02/26/20 12:25 Sodium 139 mmol/L (132-142) 02/26/20 12:25 Plasma Sodium 140 mmol/L (130-142) 02/26/20 12:25 Potassium 4.6 mmol/L (3.4-4.6) 02/26/20 12:25 Chloride 106 mmol/L (97-106) 02/26/20 12:25 Carbon Dioxide 23.2 mmol/L (24-32.6) L 02/26/20 12:25 Anion Gap 14.4 mmol/L (6.8-13.8) H 02/26/20 12:25 BUN 37 mg/dL (3-23) H 02/26/20 12:25 Creatinine 2.44 mg/dL (0.4-1.4) H D 02/26/20 12:25 Est GFR (Non-Af Amer) 21 mL/min (60-130) L 02/26/20 12:25 BUN/Creatinine Ratio 15.2 (9.0-21.6) 02/26/20 12:25 Random Glucose 165 mg/dL (70-110) H 02/26/20 12:25 Calcium 8.1 mg/dL (7.9-10.9) 02/26/20 12:25 Calcium Adj for Albumin 9.1 mg/dL (8.4-10.2) 02/26/20 12:25 Total Bilirubin 0.4 mg/dL (0.0-1.1) 02/26/20 12:25 AST 123 U/L (0-48) H 02/26/20 12:25 ALT 43 U/L (19-67) 02/26/20 12:25 Alkaline Phosphatase 140 U/L (50-170) 02/26/20 12:25 Troponin I 0.041 ng/mL (0.00-0.10) 02/26/20 12:25 Total Protein 5.7 gm/dL (6.2-8.2) L 02/26/20 12:25 Albumin 2.4 gm/dl (3.4-5.0) L 02/26/20 12:25 Amylase 26 U/L (25-115) 02/26/20 12:25 Lipase 54 U/L (73-393) L 02/26/20 12:25 Urine Color Yellow 02/26/20 15:17 Urine Appearance Slightly cloudy (CLEAR) 02/26/20 15:17 Urine pH 6.5 pH (5.0-7.0) 02/26/20 15:17 Ur Specific [place] 1.020 SP.GR. (1.005-1.010) 02/26/20 15:17 Urine Protein >=300 mg/dL (NEGATIVE) H 02/26/20 15:17 Urine Glucose (UA) 100 mg/dL (NEGATIVE) H 02/26/20 15:17 Urine Ketones Negative mg/dL (NEGATIVE) 02/26/20 15:17 Urine Blood 5 /ul (NEGATIVE) H 02/26/20 15:17 Urine Nitrate Negative (NEGATIVE) 02/26/20 15:17 Urine Bilirubin Negative mg/dl (NEGATIVE) 02/26/20 15:17 Prot Sulfosalicylic Acd 4+ mg/dL (0) H 02/26/20 15:17 Urine Urobilinogen Normal EU/dl (NORMAL) 02/26/20 15:17 Ur Leukocyte Esterase 100 /ul (NEGATIVE) H 02/26/20 15:17 Urine RBC 0-5 /hpf (0-5) 02/26/20 15:17 Urine WBC 25-50 /hpf (0-5) H 02/26/20 15:17 Ur Epithelial Cells 10-25 /hpf (0-5) H 02/26/20 15:17 Urine Bacteria 4+ (NONE) H 02/26/20 15:17 Urine Culture Comments Culture to follow 02/26/20 15:17 SARS-CoV-2 (PCR) Detected (ND) H 02/26/20 15:18 Assessment/Plan - Narrative Narrative: 70-year-old female with a past medical history of CAD, diabetes mellitus, depression, hypertension, hypercholesterolemia, hypertensive retinopathy of both eyes, seizure, restless legs, neuropathy, myocardial infarct presents from home with complaints of left-sided chest pain radiating to her abdomen. Symptoms were associated with shortness of breath and a mild cough. She states she has been having diarrhea at home. Denies fevers and chills. She presented to the emergency department and was found to have an oxygen saturation of 88 to 93% on room air, no leukocytosis, elevated creatinine of 2.44, her baseline creatinine is typically 1.4-1.68, GFR of 21 and her baseline creatinine is typically in the mid 30s. She was also found to be positive for COVID-19 and had a positive UA. She was started on ceftriaxone and azithromycin in the emergency department. Chest x-ray is positive for consolidation in the lateral aspect of the left lower lobe in the posterior inferior aspect of the right lower lobe concerning for pneumonia, abdominal x-ray showed nonspecific bowel gas pattern. She is being admitted for pneumonia. Plan #1 continue with ceftriaxone and azithromycin #2 CBC and CMP in the morning #3 follow-up urine culture #4 oxygen supplementation as needed #5 resume home education for comorbidities #6 infuse 1 L of normal saline via IV - Assessment/Plan (1) COVID-19 virus detected Problem: Acute (2) Pneumonia Problem: Acute Qualifiers: Pneumonia type: due to unspecified organism Laterality: bilateral Lung location: lower lobe of lung Qualified Code(s): J18.9 - Pneumonia, unspecified organism (3) Renal failure (ARF), acute on chronic Problem: Acute Qualifiers: Acute renal failure type: unspecified Chronic kidney disease stage: unspecified stage Qualified Code(s): N17.9 - Acute kidney failure, unspecified; N18.9 - Chronic kidney disease, unspecified (4) Diabetes mellitus type 2, uncontrolled, with complications Problem: Acute (5) Seizure disorder as sequela of cerebrovascular accident Problem: Acute (6) Hypertension Problem: Chronic Qualifiers: Hypertension type: essential hypertension Qualified Code(s): I10 - Essential (primary) hypertension
[2020-02-26] MEDS ORDERED: NORMAL SALINE 1,000 ML IV PRN (18:41)
[2020-02-26] MEDS: MEMANTINE HCL 10 MG TABLET PO SCH (21:12)
[2020-02-26] MEDS: INSULIN GLARGINE,HUM.REC.ANLOG 100 UNITS/ML VIAL SC SCH (21:12)
[2020-02-26] MEDS: TOPIRAMATE 50 MG TABLET PO SCH (21:13)
[2020-02-26] MEDS: SIMVASTATIN 20 MG TABLET PO SCH (21:14)
[2020-02-27 06:38] LABS: Hematocrit 29.1 % (37.0-47.0); Hemoglobin 9.4 gm/dL (12.5-16.0); Mean Cell Volume 87.7 fl (78-100); Mean Corpuscular Hemoglobin 28.3 pg (27-31); Mean Corpuscular Hgb Conc 32.3 g/dl (32-36); Mean Platelet Volume 10.7 fl (8-12.5); Neutrophil # 2.1 K/mm3 (1.3-6.0); Neutrophil % 55.7 % (42-75.0); Platelet Count 126 K/mm3 (150-450); Red Blood Count 3.32 M/mm3 (4.2-5.4); Red Cell Distribution Width 13.1 % (11.5-14.0); White Blood Count 3.7 K/mm3 (4.0-10.5)
[2020-02-27 07:06] LABS: Albumin * 2.2 gm/dl (3.4-5.0); Anion Gap 12.4 mmol/L (6.8-13.8); BUN/Creatinine Ratio 16.5 (9.0-21.6); Bilirubin, Total 0.3 mg/dL (0.0-1.1); Calcium * 7.9 mg/dL (7.9-10.9); Carbon Dioxide 23.8 mmol/L (24-32.6); Potassium 4.2 mmol/L (3.4-4.6); Total Protein 5.4 gm/dL (6.2-8.2)
[2020-02-27] MEDS: ACETAMINOPHEN 325 MG TABLET PO PRN (07:06)
[2020-02-27] MEDS: MEMANTINE HCL 10 MG TABLET PO SCH ×2 (08:33→22:30)
[2020-02-27] MEDS: CLOPIDOGREL BISULFATE 75 MG TABLET PO SCH (08:33)
[2020-02-27] MEDS: TOPIRAMATE 50 MG TABLET PO SCH ×2 (08:33→22:30)
[2020-02-27] MEDS: amLODIPine BESYLATE 5 MG TABLET PO SCH (08:33)
[2020-02-27] MEDS ORDERED: DEXAMETHASONE 2 MG TABLET ONE (09:49)
[2020-02-27] MEDS: DEXAMETHASONE 4 MG, DEXAMETHASONE 2 MG PO SCH ×2 (10:02)
[2020-02-27] MEDS ORDERED: ENOXAPARIN SODIUM 30 MG/0.3 ML SYRG SC SCH (15:15)
--- NOTE | 2020-02-27 16:54 | PN ---
Subjective - Date and Time Seen Date: 02/27/20 Time: 09:33 Subjective Narrative: She continues to have some shortness of breath and mild cough. She feels weak. Objective - Review of Systems Generalized/Overall Review: Reports: Weakness, Fever Respiratory: Reports: Cough, Shortness of Breath Abdominal: Denies: Abdominal Pain Misc: All systems neg except as marked - Vitals Vitals: Last Vital Signs Temp 36.8 C 02/27/20 10:06 Pulse 57 L 02/27/20 10:06 Resp 20 02/27/20 10:06 BP 123/58 02/27/20 10:06 Pulse Ox 95 02/27/20 10:06 - Abnormal Lab Findings Abnormal Lab Findings: Abnormal Lab Results 02/26/20 02/27/20 02/27/20 Range/Units 15:18 06:00 06:30 WBC 3.7 L (4.0-10.5) K/mm3 RBC 3.32 L (4.2-5.4) M/mm3 Hgb 9.4 L (12.5-16.0) gm/dL Hct 29.1 L (37.0-47.0) % Plt Count 126 L (150-450) K/mm3 Immature Gran % (Auto) 0.80 H (0.001-0.429) % Lymphocytes # 1.40 L (1.5-3.5) k/mm3 Chloride 109 H (97-106) mmol/L Carbon Dioxide 23.8 L (24-32.6) mmol/L BUN 35 H (3-23) mg/dL Creatinine 2.12 H (0.4-1.4) mg/dL Est GFR (Non-Af Amer) 24 L (60-130) mL/min Random Glucose 51 L D (70-110) mg/dL AST 113 H (0-48) U/L ALT 77 H (19-67) U/L Alkaline Phosphatase 196 H (50-170) U/L Total Protein 5.4 L (6.2-8.2) gm/dL Albumin 2.2 L (3.4-5.0) gm/dl SARS-CoV-2 (PCR) Detected H (ND) - Exam Constitutional: Present: Alert, Cooperative, Well developed, Well nourished, No distress, Elderly ENT Exam: Present: hearing grossly normal Neck: Present: non-tender, supple. Absent: lymphadenopathy (R), lymphadenopathy (L) Respiratory: Present: no respiratory distress, no accessory muscle use, decreased breath sounds - Right lower lobe, No wheezing. Absent: crackles, rhonchi Cardiovascular/Chest: Present: normal peripheral pulses, regular rate, rhythm, no edema, no murmur Abdomen: Present: Normal bowel sounds, soft, nontender Extremity: Present: no pedal edema Skin Exam: Present: normal color, warm/dry Neurologic: Present: alert, normal mood/affect Appearance: Present: appropriate appearance, appropriate insight Eye contact: Present: cooperative Thoughts: Present: normal thought pattern, normal mood /affect Assessment/Plan Plan Narrative: 70-year-old female with a past medical history of CAD, diabetes mellitus, depression, hypertension, hypercholesterolemia, hypertensive retinopathy of both eyes, seizure, restless legs, neuropathy, myocardial infarct presents from home with complaints of left-sided chest pain radiating to her abdomen. Symptoms were associated with shortness of breath and a mild cough. She states she has been having diarrhea at home. Denies fevers and chills. She presented to the emergency department and was found to have an oxygen saturation of 88 to 93% on room air, no leukocytosis, elevated creatinine of 2.44, her baseline creatinine is typically 1.4-1.68, GFR of 21 and her baseline creatinine is typically in the mid 30s. She was also found to be positive for COVID-19 and had a positive UA. She was started on ceftriaxone and azithromycin in the emergency department. Chest x-ray is positive for consolidation in the lateral aspect of the left lower lobe in the posterior inferior aspect of the right lower lobe concerning for pneumonia, abdominal x-ray showed nonspecific bowel gas pattern. She is being admitted for pneumonia. Plan #1 continue with ceftriaxone and azithromycin #2 CBC and CMP in the morning #3 follow-up urine culture #4 oxygen supplementation as needed #5 resume home education for comorbidities #6 start dexamethasone 6 mg daily. #7 VTE prophylaxis with Lovenox - Problems/Diagnosis (1) COVID-19 virus detected Problem: Acute (2) Pneumonia Problem: Acute Qualifiers: Pneumonia type: due to unspecified organism Laterality: bilateral Lung location: lower lobe of lung Qualified Code(s): J18.9 - Pneumonia, unspecified organism (3) Renal failure (ARF), acute on chronic Problem: Acute Qualifiers: Acute renal failure type: unspecified Chronic kidney disease stage: unspecified stage Qualified Code(s): N17.9 - Acute kidney failure, unspecified; N18.9 - Chronic kidney disease, unspecified (4) Diabetes mellitus type 2, uncontrolled, with complications Problem: Acute (5) Seizure disorder as sequela of cerebrovascular accident Problem: Acute (6) Hypertension Problem: Chronic Qualifiers: Hypertension type: essential hypertension Qualified Code(s): I10 - Essential (primary) hypertension
[2020-02-27] MEDS: ENOXAPARIN SODIUM 40 MG/0.4 ML SYRG SC SCH (17:18)
[2020-02-27] MEDS: AZITHROMYCIN 250 MG TABLET PO SCH (17:19)
[2020-02-27] MEDS: INSULIN GLARGINE,HUM.REC.ANLOG 100 UNITS/ML VIAL SC SCH (22:28)
[2020-02-27] MEDS: SIMVASTATIN 20 MG TABLET PO SCH (22:30)
[2020-02-28 06:44] LABS: Albumin * 2.2 gm/dl (3.4-5.0); Anion Gap 16.6 mmol/L (6.8-13.8); BUN/Creatinine Ratio 19.9 (9.0-21.6); Bilirubin, Total 0.2 mg/dL (0.0-1.1); Calcium * 7.9 mg/dL (7.9-10.9); Carbon Dioxide 20.1 mmol/L (24-32.6); Potassium 4.7 mmol/L (3.4-4.6); Total Protein 5.6 gm/dL (6.2-8.2)
[2020-02-28 06:57] LABS: Hematocrit 29.2 % (37.0-47.0); Hemoglobin 9.8 gm/dL (12.5-16.0); Mean Cell Volume 84.4 fl (78-100); Mean Corpuscular Hemoglobin 28.3 pg (27-31); Mean Corpuscular Hgb Conc 33.6 g/dl (32-36); Mean Platelet Volume 10.7 fl (8-12.5); Neutrophil # 1.8 K/mm3 (1.3-6.0); Neutrophil % 71.6 % (42-75.0); Platelet Count 128 K/mm3 (150-450); Red Blood Count 3.46 M/mm3 (4.2-5.4); Red Cell Distribution Width 12.7 % (11.5-14.0); White Blood Count 2.5 K/mm3 (4.0-10.5)
[2020-02-28] MEDS ORDERED: INSULIN LISPRO 100 UNITS/ML VIAL ONE (09:14)
[2020-02-28] MEDS: INSULIN LISPRO 100 UNITS/ML VIAL SC SCH ×4 (09:22→22:15)
[2020-02-28] MEDS: amLODIPine BESYLATE 5 MG TABLET PO SCH (09:24)
[2020-02-28] MEDS: DEXAMETHASONE 4 MG, DEXAMETHASONE 2 MG PO SCH ×2 (09:24)
[2020-02-28] MEDS: TOPIRAMATE 50 MG TABLET PO SCH ×2 (09:24→22:15)
[2020-02-28] MEDS: MEMANTINE HCL 10 MG TABLET PO SCH ×2 (09:24→22:14)
[2020-02-28] MEDS: CLOPIDOGREL BISULFATE 75 MG TABLET PO SCH (09:24)
[2020-02-28] MEDS: AZITHROMYCIN 250 MG TABLET PO SCH (09:58)
--- NOTE | 2020-02-28 10:31 | PN ---
Subjective - Date and Time Seen Date: 02/28/20 Time: 09:10 Subjective Narrative: She feels a little better today. She slept a lot yesterday so had difficulty sleeping at night. Objective - Review of Systems Generalized/Overall Review: Reports: Diaphoresis. Denies: Fever Respiratory: Reports: Shortness of Breath Cardiac: Denies: Chest Pain Abdominal: Denies: Abdominal Pain Misc: All systems neg except as marked - Vitals Vitals: Last Vital Signs Temp 36.6 C 02/28/20 10:10 Pulse 55 L 02/28/20 10:10 Resp 16 02/28/20 10:10 BP 164/57 H 02/28/20 10:10 Pulse Ox 100 02/28/20 10:10 - Abnormal Lab Findings Abnormal Lab Findings: Abnormal Lab Results 02/28/20 02/28/20 Range/Units 06:26 06:26 WBC 2.5 L D (4.0-10.5) K/mm3 RBC 3.46 L (4.2-5.4) M/mm3 Hgb 9.8 L (12.5-16.0) gm/dL Hct 29.2 L (37.0-47.0) % Plt Count 128 L (150-450) K/mm3 Immature Gran % (Auto) 1.20 H (0.001-0.429) % Lymphocytes # 0.55 L (1.5-3.5) k/mm3 Potassium 4.7 H (3.4-4.6) mmol/L Carbon Dioxide 20.1 L (24-32.6) mmol/L Anion Gap 16.6 H (6.8-13.8) mmol/L BUN 43 H (3-23) mg/dL Random Glucose 367 H D (70-110) mg/dL Alkaline Phosphatase 173 H (50-170) U/L Total Protein 5.6 L (6.2-8.2) gm/dL Albumin 2.2 L (3.4-5.0) gm/dl - Exam Constitutional: Present: Alert, Cooperative, Well developed, Well nourished, No distress, Elderly ENT Exam: Present: hearing grossly normal Neck: Present: non-tender, supple. Absent: lymphadenopathy (R), lymphadenopathy (L) Respiratory: Present: no respiratory distress, no accessory muscle use, crackles - Right lung base, No wheezing. Absent: rhonchi Cardiovascular/Chest: Present: normal peripheral pulses, regular rate, rhythm, no edema, no murmur Abdomen: Present: Normal bowel sounds, nontender Skin Exam: Present: normal color, warm/dry Neurologic: Present: alert, normal mood/affect Appearance: Present: appropriate appearance, appropriate insight Eye contact: Present: cooperative Thoughts: Present: normal mood /affect Assessment/Plan Plan Narrative: 70-year-old female with a past medical history of CAD, diabetes mellitus, depression, hypertension, hypercholesterolemia, hypertensive retinopathy of both eyes, seizure, restless legs, neuropathy, myocardial infarct presents from home with complaints of left-sided chest pain radiating to her abdomen. Symptoms were associated with shortness of breath and a mild cough. She states she has been having diarrhea at home. Denies fevers and chills. She presented to the emergency department and was found to have an oxygen saturation of 88 to 93% on room air, no leukocytosis, elevated creatinine of 2.44, her baseline creatinine is typically 1.4-1.68, GFR of 21 and her baseline creatinine is typically in the mid 30s. She was also found to be positive for COVID-19 and had a positive UA. She was started on ceftriaxone and azithromycin in the emergency department. Chest x-ray is positive for consolidation in the lateral aspect of the left lower lobe in the posterior inferior aspect of the right lower lobe concerning for pneumonia, abdominal x-ray showed nonspecific bowel gas pattern. She is being admitted for pneumonia. She was afebrile for the past 24 hours. She states she is feeling better today, she is tolerating her diet and is moving her bowels. Her blood sugars have increased likely secondary to the dexamethasone. Plan #1 continue with ceftriaxone day 3 of 5 and azithromycin day 3 of 5 #2 CBC and CMP in the morning #3 follow-up urine culture positive for E. coli that is pansensitive, continue with ceftriaxone. #4 oxygen supplementation as needed, attempt to wean #5 Continue home education for comorbidities #6 start dexamethasone 6 mg daily. #7 VTE prophylaxis with Lovenox #8 start low-dose insulin sliding scale before meals - Problems/Diagnosis (1) COVID-19 virus detected Problem: Acute (2) Pneumonia Problem: Acute Qualifiers: Pneumonia type: due to unspecified organism Laterality: bilateral Lung location: lower lobe of lung Qualified Code(s): J18.9 - Pneumonia, unspecified organism (3) Renal failure (ARF), acute on chronic Problem: Acute Qualifiers: Acute renal failure type: unspecified Chronic kidney disease stage: unspecified stage Qualified Code(s): N17.9 - Acute kidney failure, unspecified; N18.9 - Chronic kidney disease, unspecified (4) Diabetes mellitus type 2, uncontrolled, with complications Problem: Acute (5) Seizure disorder as sequela of cerebrovascular accident Problem: Acute (6) Hypertension Problem: Chronic Qualifiers: Hypertension type: essential hypertension Qualified Code(s): I10 - Essential (primary) hypertension
[2020-02-28] MEDS: ENOXAPARIN SODIUM 40 MG/0.4 ML SYRG SC SCH (15:04)
[2020-02-28] MEDS: INSULIN GLARGINE,HUM.REC.ANLOG 100 UNITS/ML VIAL SC SCH (22:15)
[2020-02-28] MEDS: SIMVASTATIN 20 MG TABLET PO SCH (22:15)
[2020-02-29 06:36] LABS: Hematocrit 28.6 % (37.0-47.0); Hemoglobin 9.6 gm/dL (12.5-16.0); Mean Cell Volume 83.6 fl (78-100); Mean Corpuscular Hemoglobin 28.1 pg (27-31); Mean Corpuscular Hgb Conc 33.6 g/dl (32-36); Mean Platelet Volume 10.3 fl (8-12.5); Neutrophil # 2.6 K/mm3 (1.3-6.0); Neutrophil % 76.1 % (42-75.0); Platelet Count 147 K/mm3 (150-450); Red Blood Count 3.42 M/mm3 (4.2-5.4); Red Cell Distribution Width 12.5 % (11.5-14.0); White Blood Count 3.4 K/mm3 (4.0-10.5)
[2020-02-29 07:00] LABS: Albumin * 2.2 gm/dl (3.4-5.0); Anion Gap 16.9 mmol/L (6.8-13.8); BUN/Creatinine Ratio 22.3 (9.0-21.6); Bilirubin, Total 0.2 mg/dL (0.0-1.1); Ca. Corrected For Albumin 9.5 mg/dL (8.4-10.2); Calcium * 8.4 mg/dL (7.9-10.9); Potassium 4.9 mmol/L (3.4-4.6); Total Protein 5.6 gm/dL (6.2-8.2)
[2020-02-29] MEDS: INSULIN LISPRO 100 UNITS/ML VIAL SC SCH ×5 (07:21→21:29)
[2020-02-29] MEDS: MEMANTINE HCL 10 MG TABLET PO SCH ×2 (09:58→21:28)
[2020-02-29] MEDS: DEXAMETHASONE 4 MG, DEXAMETHASONE 2 MG PO SCH ×2 (09:58)
[2020-02-29] MEDS: amLODIPine BESYLATE 5 MG TABLET PO SCH (09:59)
[2020-02-29] MEDS: CLOPIDOGREL BISULFATE 75 MG TABLET PO SCH (09:59)
[2020-02-29] MEDS: AZITHROMYCIN 250 MG TABLET PO SCH (09:59)
[2020-02-29] MEDS: TOPIRAMATE 50 MG TABLET PO SCH ×2 (09:59→21:28)
--- NOTE | 2020-02-29 13:15 | PN ---
Subjective - Date and Time Seen Date: 02/29/20 Time: 10:31 Subjective Narrative: She is feeling better overall. She continues to have a nonproductive cough. Objective - Review of Systems Generalized/Overall Review: Denies: Fever Respiratory: Reports: Cough, Shortness of Breath Cardiac: Denies: Chest Pain Abdominal: Denies: Abdominal Pain Misc: All systems neg except as marked - Vitals Vitals: Last Vital Signs Temp 36.6 C 02/29/20 11:00 Pulse 51 L 02/29/20 11:00 Resp 18 02/29/20 11:00 BP 146/64 02/29/20 11:00 Pulse Ox 98 02/29/20 11:00 - Abnormal Lab Findings Abnormal Lab Findings: Abnormal Lab Results 02/29/20 02/29/20 Range/Units 06:33 06:33 WBC 3.4 L D (4.0-10.5) K/mm3 RBC 3.42 L (4.2-5.4) M/mm3 Hgb 9.6 L (12.5-16.0) gm/dL Hct 28.6 L (37.0-47.0) % Plt Count 147 L (150-450) K/mm3 Immature Gran % (Auto) 2.40 H (0.001-0.429) % Immature Gran # (Auto) 0.08 H (0.000-0.0310) K/mm3 Neutrophils % 76.1 H (42-75.0) % Lymphocytes % 15.3 L (20-51) % Lymphocytes # 0.52 L (1.5-3.5) k/mm3 Potassium 4.9 H (3.4-4.6) mmol/L Carbon Dioxide 20.0 L (24-32.6) mmol/L Anion Gap 16.9 H (6.8-13.8) mmol/L BUN 44 H (3-23) mg/dL Creatinine 1.97 H (0.4-1.4) mg/dL Est GFR (Non-Af Amer) 27 L (60-130) mL/min BUN/Creatinine Ratio 22.3 H (9.0-21.6) Random Glucose 381 H (70-110) mg/dL Total Protein 5.6 L (6.2-8.2) gm/dL Albumin 2.2 L (3.4-5.0) gm/dl - Exam Constitutional: Present: Alert, Cooperative, Well developed, Well nourished, No distress, Elderly ENT Exam: Present: hearing grossly normal Neck: Absent: lymphadenopathy (R), lymphadenopathy (L) Respiratory: Present: no respiratory distress, no accessory muscle use, crackles - Right lung base, No wheezing. Absent: rhonchi Cardiovascular/Chest: Present: normal peripheral pulses, regular rate, rhythm, no edema, no murmur Abdomen: Present: Normal bowel sounds, soft, nontender Extremity: Present: no pedal edema Skin Exam: Present: warm/dry Neurologic: Present: alert, normal mood/affect Appearance: Present: appropriate appearance, appropriate insight Eye contact: Present: cooperative Thoughts: Present: normal thought pattern, normal mood /affect Assessment/Plan Plan Narrative: 70-year-old female with a past medical history of CAD, diabetes mellitus, depression, hypertension, hypercholesterolemia, hypertensive retinopathy of both eyes, seizure, restless legs, neuropathy, myocardial infarct presents from home with complaints of left-sided chest pain radiating to her abdomen. Symptoms were associated with shortness of breath and a mild cough. She states she has been having diarrhea at home. Denies fevers and chills. She presented to the emergency department and was found to have an oxygen saturation of 88 to 93% on room air, no leukocytosis, elevated creatinine of 2.44, her baseline creatinine is typically 1.4-1.68, GFR of 21 and her baseline creatinine is typically in the mid 30s. She was also found to be positive for COVID-19 and had a positive UA. She was started on ceftriaxone and azithromycin in the emergency department. Chest x-ray is positive for consolidation in the lateral aspect of the left lower lobe in the posterior inferior aspect of the right lower lobe concerning for pneumonia, abdominal x-ray showed nonspecific bowel gas pattern. She is being admitted for pneumonia. She remains afebrile. She states she is feeling better today, she is tolerating her diet and is moving her bowels. Her blood sugars have increased likely secondary to the dexamethasone. She has been weaned off of oxygen and her oxygen levels are maintaining from 94 to 98% on room air. Plan #1 continue with ceftriaxone day 4 of 5 and azithromycin day 4 of 5 #2 CBC and CMP in the morning #3 follow-up urine culture positive for E. coli that is pansensitive, continue with ceftriaxone. #4 oxygen supplementation as needed, #5 Continue home education for comorbidities #6 Continue dexamethasone 6 mg daily. #7 VTE prophylaxis with Lovenox #8 Continue low-dose insulin sliding scale before meals #9 discharge planning, with patient's family wants her to go to a [facility] - Problems/Diagnosis (1) COVID-19 virus detected Problem: Acute (2) Pneumonia Problem: Acute Qualifiers: Pneumonia type: due to unspecified organism Laterality: bilateral Lung location: lower lobe of lung Qualified Code(s): J18.9 - Pneumonia, unspecified organism (3) Renal failure (ARF), acute on chronic Problem: Acute Qualifiers: Acute renal failure type: unspecified Chronic kidney disease stage: unspecified stage Qualified Code(s): N17.9 - Acute kidney failure, unspecified; N18.9 - Chronic kidney disease, unspecified (4) Diabetes mellitus type 2, uncontrolled, with complications Problem: Acute (5) Seizure disorder as sequela of cerebrovascular accident Problem: Acute (6) Hypertension Problem: Chronic Qualifiers: Hypertension type: essential hypertension Qualified Code(s): I10 - Essential (primary) hypertension (7) Pancytopenia Problem: Acute (8) UTI (urinary tract infection) Problem: Acute Qualifiers: Encounter type: initial encounter
[2020-02-29] MEDS: ENOXAPARIN SODIUM 40 MG/0.4 ML SYRG SC SCH (15:13)
[2020-02-29] MEDS: SIMVASTATIN 20 MG TABLET PO SCH (21:28)
[2020-02-29] MEDS: INSULIN GLARGINE,HUM.REC.ANLOG 100 UNITS/ML VIAL SC SCH (21:28)
[2020-03-01 07:15] LABS: Hematocrit 28.4 % (37.0-47.0); Hemoglobin 9.5 gm/dL (12.5-16.0); Mean Corpuscular Hemoglobin 28.1 pg (27-31); Mean Corpuscular Hgb Conc 33.5 g/dl (32-36); Mean Platelet Volume 10.6 fl (8-12.5); Neutrophil # 2.8 K/mm3 (1.3-6.0); Neutrophil % 67.1 % (42-75.0); Platelet Count 165 K/mm3 (150-450); Red Blood Count 3.38 M/mm3 (4.2-5.4); Red Cell Distribution Width 12.7 % (11.5-14.0); White Blood Count 4.2 K/mm3 (4.0-10.5)
[2020-03-01 07:28] LABS: Albumin * 2.2 gm/dl (3.4-5.0); Anion Gap 15.4 mmol/L (6.8-13.8); BUN/Creatinine Ratio 26.6 (9.0-21.6); Bilirubin, Total 0.2 mg/dL (0.0-1.1); Ca. Corrected For Albumin 9.5 mg/dL (8.4-10.2); Calcium * 8.4 mg/dL (7.9-10.9); Carbon Dioxide 20.1 mmol/L (24-32.6); Potassium 4.5 mmol/L (3.4-4.6); Total Protein 5.4 gm/dL (6.2-8.2)
[2020-03-01] MEDS: INSULIN LISPRO 100 UNITS/ML VIAL SC SCH ×4 (08:41→21:16)
[2020-03-01] MEDS: DEXAMETHASONE 4 MG, DEXAMETHASONE 2 MG PO SCH ×2 (08:43)
[2020-03-01] MEDS: AZITHROMYCIN 250 MG TABLET PO SCH (08:43)
[2020-03-01] MEDS: amLODIPine BESYLATE 5 MG TABLET PO SCH (08:43)
[2020-03-01] MEDS: CLOPIDOGREL BISULFATE 75 MG TABLET PO SCH (08:43)
[2020-03-01] MEDS: MEMANTINE HCL 10 MG TABLET PO SCH ×2 (08:43→21:15)
[2020-03-01] MEDS: ACETAMINOPHEN 325 MG TABLET PO PRN (08:44)
[2020-03-01] MEDS: TOPIRAMATE 50 MG TABLET PO SCH ×2 (08:44→21:15)
--- NOTE | 2020-03-01 12:11 | PN ---
Subjective - Date and Time Seen Date: 03/01/20 Time: 09:12 Subjective Narrative: She has a nonproductive cough and shortness of breath with exertion. She is tolerating her diet. Denies frequent urination or pain with urination. Objective - Review of Systems Generalized/Overall Review: Denies: Fever Respiratory: Reports: Shortness of Breath. Denies: Cough Cardiac: Denies: Chest Pain Abdominal: Reports: Abdominal Pain Misc: All systems neg except as marked - Vitals Vitals: Last Vital Signs Temp 36.6 C 03/01/20 10:21 Pulse 48 L 03/01/20 10:21 Resp 18 03/01/20 10:21 BP 155/70 H 03/01/20 10:21 Pulse Ox 95 03/01/20 10:21 - Abnormal Lab Findings Abnormal Lab Findings: Abnormal Lab Results 03/01/20 03/01/20 Range/Units 07:08 07:08 RBC 3.38 L (4.2-5.4) M/mm3 Hgb 9.5 L (12.5-16.0) gm/dL Hct 28.4 L (37.0-47.0) % Immature Gran % (Auto) 8.40 H (0.001-0.429) % Immature Gran # (Auto) 0.35 H (0.000-0.0310) K/mm3 Lymphocytes % 16.6 L (20-51) % Lymphocytes # 0.69 L (1.5-3.5) k/mm3 Plasma Sodium 143 H (130-142) mmol/L Chloride 110 H (97-106) mmol/L Carbon Dioxide 20.1 L (24-32.6) mmol/L Anion Gap 15.4 H (6.8-13.8) mmol/L BUN 51 H (3-23) mg/dL Creatinine 1.92 H (0.4-1.4) mg/dL Est GFR (Non-Af Amer) 27 L (60-130) mL/min BUN/Creatinine Ratio 26.6 H (9.0-21.6) Random Glucose 207 H D (70-110) mg/dL Total Protein 5.4 L (6.2-8.2) gm/dL Albumin 2.2 L (3.4-5.0) gm/dl - Exam Constitutional: Present: Alert, Cooperative, Well developed, Well nourished, No distress, Elderly ENT Exam: Present: hearing grossly normal Neck: Present: non-tender, supple. Absent: lymphadenopathy (R), lymphadenopathy (L) Respiratory: Present: lungs clear, no respiratory distress, no accessory muscle use, No wheezing. Absent: crackles, rhonchi Cardiovascular/Chest: Present: normal peripheral pulses, regular rate, rhythm, no edema, no murmur Abdomen: Present: Normal bowel sounds, soft, nontender Extremity: Present: no pedal edema Skin Exam: Present: normal color, warm/dry Appearance: Present: appropriate appearance, appropriate insight Eye contact: Present: cooperative Thoughts: Present: normal thought pattern, normal mood /affect Assessment/Plan Plan Narrative: 70-year-old female with a past medical history of CAD, diabetes mellitus, depression, hypertension, hypercholesterolemia, hypertensive retinopathy of both eyes, seizure, restless legs, neuropathy, myocardial infarct presents from home with complaints of left-sided chest pain radiating to her abdomen. Symptoms were associated with shortness of breath and a mild cough. She states she has been having diarrhea at home. Denies fevers and chills. She presented to the emergency department and was found to have an oxygen saturation of 88 to 93% on room air, no leukocytosis, elevated creatinine of 2.44, her baseline creatinine is typically 1.4-1.68, GFR of 21 and her baseline creatinine is typically in the mid 30s. She was also found to be positive for COVID-19 and had a positive UA. She was started on ceftriaxone and azithromycin in the emergency department. Chest x-ray is positive for consolidation in the lateral aspect of the left lower lobe in the posterior inferior aspect of the right lower lobe concerning for pneumonia, abdominal x-ray showed nonspecific bowel gas pattern. She is being admitted for pneumonia. She remains afebrile. She complains of shortness of breath with exertion but is doing well without oxygen supplementation. Awaiting placement in a [facility] per family's request. Due to the coronavirus pandemic nursing homes are requ iring the patient to have 10 days from initial symptoms prior to acceptance to the [facility]. Plan #1 continue with ceftriaxone day 5 of 5 and azithromycin day 5 of 5 #2 CBC and CMP in the morning #3 follow-up urine culture positive for E. coli that is pansensitive, continue with ceftriaxone. #4 oxygen supplementation as needed, #5 Continue home education for comorbidities #6 Continue dexamethasone 6 mg daily day 5. #7 VTE prophylaxis with Lovenox #8 Continue moderate-intensity insulin sliding scale before meals #9 discharge planning, patient's family wants her to go to a [facility] - Problems/Diagnosis (1) COVID-19 virus detected Problem: Acute (2) Pneumonia Problem: Acute Qualifiers: Pneumonia type: due to unspecified organism Laterality: bilateral Lung location: lower lobe of lung Qualified Code(s): J18.9 - Pneumonia, unspecified organism (3) Renal failure (ARF), acute on chronic Problem: Acute Qualifiers: Acute renal failure type: unspecified Chronic kidney disease stage: unspecified stage Qualified Code(s): N17.9 - Acute kidney failure, unspecified; N18.9 - Chronic kidney disease, unspecified (4) Diabetes mellitus type 2, uncontrolled, with complications Problem: Acute (5) Seizure disorder as sequela of cerebrovascular accident Problem: Acute (6) Hypertension Problem: Chronic Qualifiers: Hypertension type: essential hypertension Qualified Code(s): I10 - Essential (primary) hypertension (7) Pancytopenia Problem: Acute (8) UTI (urinary tract infection) Problem: Acute Qualifiers: Encounter type: initial encounter
[2020-03-01] MEDS: ENOXAPARIN SODIUM 40 MG/0.4 ML SYRG SC SCH (14:30)
[2020-03-01] MEDS: SIMVASTATIN 20 MG TABLET PO SCH (21:15)
[2020-03-01] MEDS: INSULIN GLARGINE,HUM.REC.ANLOG 100 UNITS/ML VIAL SC SCH (21:15)
[2020-03-02 06:56] LABS: Hematocrit 31.2 % (37.0-47.0); Hemoglobin 10.4 gm/dL (12.5-16.0); Mean Cell Volume 83.9 fl (78-100); Mean Corpuscular Hgb Conc 33.3 g/dl (32-36); Mean Platelet Volume 9.9 fl (8-12.5); Platelet Count 207 K/mm3 (150-450); Red Blood Count 3.72 M/mm3 (4.2-5.4); Red Cell Distribution Width 12.7 % (11.5-14.0); White Blood Count 5.9 K/mm3 (4.0-10.5)
[2020-03-02 07:06] LABS: Total Cells Counted 100
[2020-03-02 07:10] LABS: Albumin * 2.2 gm/dl (3.4-5.0); Anion Gap 13.9 mmol/L (6.8-13.8); BUN/Creatinine Ratio 28.4 (9.0-21.6); Bilirubin, Total 0.2 mg/dL (0.0-1.1); Ca. Corrected For Albumin 9.5 mg/dL (8.4-10.2); Calcium * 8.4 mg/dL (7.9-10.9); Carbon Dioxide 21.6 mmol/L (24-32.6); Potassium 4.5 mmol/L (3.4-4.6); Total Protein 5.4 gm/dL (6.2-8.2)
[2020-03-02 07:18] LABS: Atypical (Reactive) Lymph 2 % (0-2); Band 2 % (0-2.0); Immature Granulocyte 8 (0-1); Lymphocyte 21 % (20-51); Monocyte 7 % (0-9); Neutrophil 60 % (42-75); Neutrophil # 3.5 K/mm3 (1.3-6.0)
[2020-03-02 07:19] LABS: Hypochromia Trace
[2020-03-02] MEDS: INSULIN LISPRO 100 UNITS/ML VIAL SC SCH ×4 (07:21→21:08)
[2020-03-02] MEDS: ACETAMINOPHEN 325 MG TABLET PO PRN (09:57)
[2020-03-02] MEDS: CLOPIDOGREL BISULFATE 75 MG TABLET PO SCH (09:58)
[2020-03-02] MEDS: amLODIPine BESYLATE 5 MG TABLET PO SCH (09:58)
[2020-03-02] MEDS: DEXAMETHASONE 4 MG, DEXAMETHASONE 2 MG PO SCH ×2 (09:58)
[2020-03-02] MEDS: TOPIRAMATE 50 MG TABLET PO SCH ×2 (09:58→21:02)
[2020-03-02] MEDS: MEMANTINE HCL 10 MG TABLET PO SCH ×2 (09:58→21:02)
--- NOTE | 2020-03-02 10:39 | PN ---
Subjective - Date and Time Seen Date: 03/02/20 Time: 10:37 Subjective Narrative: Patient is feeling better. Less SOB. Objective - Review of Systems Generalized/Overall Review: Reports: Weakness. Denies: Chills, Fever EENTM: Denies: Blurred Vision Respiratory: Reports: Cough, Shortness of Breath. Denies: Wheezing Cardiac: Denies: Chest Pain, Edema, Palpitations Abdominal: Denies: Nausea, Vomiting, Abdominal Pain Genitourinary Symptoms: Denies: Urgency, Frequency Musculoskeletal Complaints: Denies: Joint Pain Neurological: Denies: Headache Skin: Denies: Lesions, Rash Misc: All systems neg except as marked - Vitals Vitals: Last Vital Signs Temp 36.4 C 03/02/20 07:27 Pulse 49 L 03/02/20 09:58 Resp 18 03/02/20 07:27 BP 173/80 H 03/02/20 09:58 Pulse Ox 99 03/02/20 07:27 - Abnormal Lab Findings Abnormal Lab Findings: Abnormal Lab Results 03/02/20 03/02/20 Range/Units 06:40 06:40 RBC 3.72 L (4.2-5.4) M/mm3 Hgb 10.4 L (12.5-16.0) gm/dL Hct 31.2 L (37.0-47.0) % Immature Granulocytes 8 H (0-1) Lymphocytes # (Manual) 1.2 L (1.5-3.5) k/mm3 Chloride 108 H (97-106) mmol/L Carbon Dioxide 21.6 L (24-32.6) mmol/L Anion Gap 13.9 H (6.8-13.8) mmol/L BUN 50 H (3-23) mg/dL Creatinine 1.76 H (0.4-1.4) mg/dL Est GFR (Non-Af Amer) 30 L (60-130) mL/min BUN/Creatinine Ratio 28.4 H (9.0-21.6) Random Glucose 212 H (70-110) mg/dL AST 65 H (0-48) U/L Total Protein 5.4 L (6.2-8.2) gm/dL Albumin 2.2 L (3.4-5.0) gm/dl - Exam Constitutional: Present: Alert, Oriented x3, Cooperative, Elderly ENT Exam: Present: hearing grossly normal Neck: Present: supple. Absent: lymphadenopathy (R), lymphadenopathy (L) Respiratory: Present: decreased breath sounds, No rales, No wheezing Cardiovascular/Chest: Present: regular rate, rhythm, no JVD, no murmur Abdomen: Present: Normal bowel sounds, soft, nontender, nondistended Extremity: Present: no pedal edema, no calf tenderness Assessment/Plan Plan Narrative: HD # 6. Continue with IV antibiotics. will increase BP medication. for NH before going home. her BS have been running high due to her Dexamethasone. they just increased her Humalog to moderate dose yesterday. will increase her lantus. - Problems/Diagnosis (1) Pneumonia Problem: Acute Qualifiers: Pneumonia type: due to unspecified organism Laterality: bilateral Lung location: lower lobe of lung Qualified Code(s): J18.9 - Pneumonia, unspecified organism (2) COVID-19 virus detected Problem: Acute (3) UTI (urinary tract infection) Problem: Acute Qualifiers: Encounter type: initial encounter Narrative: E.Coli (4) Acute on chronic renal failure Problem: Resolved Qualifiers: Chronic kidney disease stage: stage 3 (moderate) (5) Diabetes mellitus type 2, uncontrolled, with complications Problem: Acute (6) Gastroenteritis Problem: Resolved (7) Diabetes Problem: Chronic Qualifiers: Diabetes mellitus type: type 2 Diabetes mellitus middle or intermediate school principal insulin use: with assisted use Diabetes mellitus complication status: with ophthalmic complications Diabetes mellitus complication detail: with diabetic retinopathy Diabetic retinopathy severity: with unspecified retinopathy severity Diabetes mellitus macular edema: macular edema presence unspecified Laterality: bilateral Qualified Code(s): E11.319 - Type 2 diabetes mellitus with unspecified diabetic retinopathy without macular edema; Z79.4 - terminal press operator (current) use of insulin (8) Hypertension Problem: Chronic Qualifiers: Hypertension type: essential hypertension Qualified Code(s): I10 - Essential (primary) hypertension
[2020-03-02] MEDS ORDERED: amLODIPine BESYLATE 10 MG TABLET PO ONE (10:47)
[2020-03-02] MEDS ORDERED: amLODIPine BESYLATE 5 MG TABLET PO ONE (10:49)
[2020-03-02] MEDS ORDERED: amLODIPine BESYLATE 5 MG TABLET PO SCH (11:00)
[2020-03-02] MEDS: ENOXAPARIN SODIUM 40 MG/0.4 ML SYRG SC SCH (15:47)
[2020-03-02] MEDS: SIMVASTATIN 20 MG TABLET PO SCH (21:02)
[2020-03-02] MEDS: INSULIN GLARGINE,HUM.REC.ANLOG 100 UNITS/ML VIAL SC SCH (21:04)
[2020-03-03] MEDS: INSULIN LISPRO 100 UNITS/ML VIAL SC SCH ×4 (07:50→20:46)
[2020-03-03] MEDS: CLOPIDOGREL BISULFATE 75 MG TABLET PO SCH (10:11)
[2020-03-03] MEDS: MEMANTINE HCL 10 MG TABLET PO SCH ×2 (10:11→20:45)
[2020-03-03] MEDS: DEXAMETHASONE 4 MG, DEXAMETHASONE 2 MG PO SCH ×2 (10:11)
[2020-03-03] MEDS: amLODIPine BESYLATE 10 MG TABLET PO SCH (10:11)
[2020-03-03] MEDS: TOPIRAMATE 50 MG TABLET PO SCH ×2 (10:12→20:46)
[2020-03-03] MEDS ORDERED: SENNOSIDES/DOCUSATE SODIUM 1 TAB TABLET PO PRN (11:46)
--- NOTE | 2020-03-03 12:12 | PN ---
Subjective - Date and Time Seen Date: 03/03/20 Time: 12:05 Subjective Narrative: Patient does not want anything to do today- does not want to go to [facility], walk in the room. she says she is very depressed. Objective - Review of Systems Generalized/Overall Review: Reports: Weakness. Denies: Chills, Fever EENTM: Denies: Blurred Vision Respiratory: Reports: Cough, Shortness of Breath. Denies: Wheezing Cardiac: Denies: Chest Pain, Edema, Palpitations Abdominal: Reports: Constipation. Denies: Nausea, Vomiting, Abdominal Pain Genitourinary Symptoms: Denies: Urgency, Frequency Musculoskeletal Complaints: Denies: Joint Pain Neurological: Reports: Anxiety, Depressed. Denies: Headache Skin: Denies: Lesions, Rash Misc: All systems neg except as marked - Vitals Vitals: Last Vital Signs Temp 36.4 C 03/03/20 07:39 Pulse 52 L 03/03/20 10:11 Resp 15 03/03/20 07:39 BP 131/62 03/03/20 10:11 Pulse Ox 97 03/03/20 07:39 - Exam Constitutional: Present: Alert, Oriented x3, Cooperative ENT Exam: Present: hearing grossly normal Neck: Present: supple. Absent: lymphadenopathy (R), lymphadenopathy (L) Respiratory: Present: decreased breath sounds, No rales, No wheezing Cardiovascular/Chest: Present: regular rate, rhythm, no JVD, no murmur Abdomen: Present: Normal bowel sounds, soft, nontender, distended Assessment/Plan Plan Narrative: Raysa is complaining of depression and anxiety especially also with the thought that she will be going to the longterm. As per nurse the patient did not want to do anything today. She also has been constipated and has had no bowel movement since admission. She is on her day 7 of IV antibiotics and day 6 of her Decadron. She is awaiting longterm placement. We will start her on Effexor XR and will give her stool laxative and softener/stimulant. I told the patient that she could talk to her family through a phone via video and audio and will likely help also with her depression. She says she has an old phone. I will try to find out if the hospital has the means to do this with our COVID patient's may be with an iPad. - Problems/Diagnosis (1) Constipation Problem: Acute (2) Depression with anxiety Problem: Acute (3) Pneumonia Problem: Acute Qualifiers: Pneumonia type: due to unspecified organism Laterality: bilateral Lung location: lower lobe of lung Qualified Code(s): J18.9 - Pneumonia, unspecified organism (4) COVID-19 virus detected Problem: Acute (5) UTI (urinary tract infection) Problem: Acute Qualifiers: Encounter type: initial encounter (6) Acute on chronic renal failure Problem: Resolved Qualifiers: Chronic kidney disease stage: stage 3 (moderate) (7) Diabetes mellitus type 2, uncontrolled, with complications Problem: Acute (8) Gastroenteritis Problem: Resolved (9) Diabetes Problem: Chronic Qualifiers: Diabetes mellitus type: type 2 Diabetes mellitus fdc insulin use: with rn long term care use Diabetes mellitus complication status: with ophthalmic complications Diabetes mellitus complication detail: with diabetic retinopathy Diabetic retinopathy severity: with unspecified retinopathy severity Diabetes mellitus macular edema: macular edema presence unspecified Laterality: bilateral Qualified Code(s): E11.319 - Type 2 diabetes mellitus with unspecified diabetic retinopathy without macular edema; Z79.4 - care home (current) use of insulin (10) Hypertension Problem: Chronic Qualifiers: Hypertension type: essential hypertension Qualified Code(s): I10 - Essential (primary) hypertension
[2020-03-03] MEDS: VENLAFAXINE HCL 37.5 MG CAP.SR.24H PO SCH (12:45)
[2020-03-03] MEDS: POLYETHYLENE GLYCOL 3350 17 GM PACKET PO SCH (12:45)
[2020-03-03] MEDS: ENOXAPARIN SODIUM 40 MG/0.4 ML SYRG SC SCH (17:15)
[2020-03-03] MEDS: INSULIN GLARGINE,HUM.REC.ANLOG 100 UNITS/ML VIAL SC SCH (20:46)
[2020-03-03] MEDS: SIMVASTATIN 20 MG TABLET PO SCH (20:46)
[2020-03-04 06:44] LABS: Hematocrit 28.6 % (37.0-47.0); Hemoglobin 9.7 gm/dL (12.5-16.0); Mean Cell Volume 83.6 fl (78-100); Mean Corpuscular Hemoglobin 28.4 pg (27-31); Mean Corpuscular Hgb Conc 33.9 g/dl (32-36); Platelet Count 243 K/mm3 (150-450); Red Blood Count 3.42 M/mm3 (4.2-5.4); Red Cell Distribution Width 12.9 % (11.5-14.0); White Blood Count 7.2 K/mm3 (4.0-10.5)
[2020-03-04 06:47] LABS: Total Cells Counted 100
[2020-03-04 06:51] LABS: BUN/Creatinine Ratio 30.6 (9.0-21.6); Calcium * 8.3 mg/dL (7.9-10.9); Carbon Dioxide 21.8 mmol/L (24-32.6); Estimated Creat Clear 22.5; Potassium 4.8 mmol/L (3.4-4.6)
[2020-03-04 06:57] LABS: Atypical (Reactive) Lymph 1 % (0-2); Band 1 % (0-2.0); Basophil 4 % (0-1); Immature Granulocyte 3 (0-1); Lymphocyte 16 % (20-51); Monocyte 9 % (0-9); Neutrophil 66 % (42-75); Neutrophil # 4.8 K/mm3 (1.3-6.0)
[2020-03-04 06:58] LABS: Platelet Estimate Normal (NORMAL)
[2020-03-04 06:59] LABS: Anisocytosis Trace; Hypochromia Trace
[2020-03-04] MEDS: INSULIN LISPRO 100 UNITS/ML VIAL SC SCH ×4 (07:54→21:17)
[2020-03-04] MEDS: amLODIPine BESYLATE 10 MG TABLET PO SCH (08:01)
[2020-03-04] MEDS: VENLAFAXINE HCL 37.5 MG CAP.SR.24H PO SCH (08:01)
[2020-03-04] MEDS: MEMANTINE HCL 10 MG TABLET PO SCH ×2 (08:01→21:16)
[2020-03-04] MEDS: DEXAMETHASONE 4 MG, DEXAMETHASONE 2 MG PO SCH ×2 (08:01)
[2020-03-04] MEDS: CLOPIDOGREL BISULFATE 75 MG TABLET PO SCH (08:01)
[2020-03-04] MEDS: TOPIRAMATE 50 MG TABLET PO SCH ×2 (08:01→21:16)
[2020-03-04] MEDS: POLYETHYLENE GLYCOL 3350 17 GM PACKET PO SCH (08:01)
--- NOTE | 2020-03-04 11:19 | PN ---
Subjective - Date and Time Seen Date: 03/04/20 Time: 09:09 Subjective Narrative: She feels depressed because she will be going to a custodial. She has some shortness of breath on exertion. She is tolerating her diet Objective - Review of Systems Generalized/Overall Review: Denies: Fever Respiratory: Reports: Shortness of Breath - With exertion Cardiac: Denies: Chest Pain Abdominal: Denies: Abdominal Pain Misc: All systems neg except as marked - Vitals Vitals: Last Vital Signs Temp 36.4 C 03/04/20 02:27 Pulse 57 L 03/04/20 08:01 Resp 17 03/04/20 07:59 BP 187/83 H 03/04/20 08:01 Pulse Ox 98 03/04/20 07:59 - Abnormal Lab Findings Abnormal Lab Findings: Abnormal Lab Results 03/04/20 03/04/20 Range/Units 06:30 06:30 RBC 3.42 L (4.2-5.4) M/mm3 Hgb 9.7 L (12.5-16.0) gm/dL Hct 28.6 L (37.0-47.0) % Lymphocytes % (Manual) 16 L (20-51) % Basophils % (Manual) 4 H (0-1) % Immature Granulocytes 3 H (0-1) Lymphocytes # (Manual) 1.2 L (1.5-3.5) k/mm3 Basophils # (Manual) 0.3 H (0.0-0.1) k/mm3 Potassium 4.8 H (3.4-4.6) mmol/L Chloride 108 H (97-106) mmol/L Carbon Dioxide 21.8 L (24-32.6) mmol/L Anion Gap 14.0 H (6.8-13.8) mmol/L BUN 53 H (3-23) mg/dL Creatinine 1.73 H (0.4-1.4) mg/dL Est GFR (Non-Af Amer) 31 L (60-130) mL/min BUN/Creatinine Ratio 30.6 H (9.0-21.6) Random Glucose 178 H (70-110) mg/dL - Exam Constitutional: Present: Alert, Cooperative, Well developed, Well nourished, No distress, Elderly ENT Exam: Present: hearing grossly normal Neck: Present: non-tender, supple. Absent: lymphadenopathy (R), lymphadenopathy (L) Respiratory: Present: lungs clear, no accessory muscle use, No wheezing. Absent: crackles, rhonchi Cardiovascular/Chest: Present: normal peripheral pulses, regular rate, rhythm, no edema, no murmur Abdomen: Present: Normal bowel sounds, soft, nontender Extremity: Present: no pedal edema Skin Exam: Present: normal color, warm/dry Neurologic: Present: alert, normal mood/affect Appearance: Present: appropriate appearance, appropriate insight Eye contact: Present: cooperative Thoughts: Present: normal thought pattern, normal mood /affect Assessment/Plan Plan Narrative: 70-year-old female with a past medical history of CAD, diabetes mellitus, depression, hypertension, hypercholesterolemia, hypertensive retinopathy of both eyes, seizure, restless legs, neuropathy, myocardial infarct presents from home with complaints of left-sided chest pain radiating to her abdomen. Symptoms were associated with shortness of breath and a mild cough. She states she has been having diarrhea at home. Denies fevers and chills. She presented to the emergency department and was found to have an oxygen saturation of 88 to 93% on room air, no leukocytosis, elevated creatinine of 2.44, her baseline creatinine is typically 1.4-1.68, GFR of 21 and her baseline creatinine is typically in the mid 30s. She was also found to be positive for COVID-19 and had a positive UA. She was started on ceftriaxone and azithromycin in the emergency department. Chest x-ray is positive for consolidation in the lateral aspect of the left lower lobe in the posterior inferior aspect of the right lower lobe concerning for pneumonia, abdominal x-ray showed nonspecific bowel gas pattern. She is being admitted for pneumonia. She remains afebrile. She complains of shortness of breath with exertion but is doing well without oxygen supplementation. Awaiting placement in a custodial per family's request. Due to the coronavirus pandemic nursing homes are requiring the patient to have 10 days from initial symptoms prior to acceptance to the custodial. Plan #1 Mood is low due to having to move into a custodial. She was recently started on venlafaxine #2 CBC and CMP in the morning #3 She has completed treatment for the pneumonia and the UTI. #4 oxygen supplementation as needed, #5 Continue home medications for comorbidities #6 I will stop dexamethasone today #7 VTE prophylaxis with Lovenox #8 Continue moderate-intensity insulin sliding scale before meals #9 discharge planning, patient's family wants her to go to a custodial - Problems/Diagnosis (1) COVID-19 virus detected Problem: Acute (2) Pneumonia Problem: Acute Qualifiers: Pneumonia type: due to unspecified organism Laterality: bilateral Lung location: lower lobe of lung Qualified Code(s): J18.9 - Pneumonia, unspecified organism (3) Renal failure (ARF), acute on chronic Problem: Acute Qualifiers: Acute renal failure type: unspecified Chronic kidney disease stage: unspecified stage Qualified Code(s): N17.9 - Acute kidney failure, u nspecified; N18.9 - Chronic kidney disease, unspecified (4) Diabetes mellitus type 2, uncontrolled, with complications Problem: Acute (5) Seizure disorder as sequela of cerebrovascular accident Problem: Acute (6) Hypertension Problem: Chronic Qualifiers: Hypertension type: essential hypertension Qualified Code(s): I10 - Essential (primary) hypertension (7) Pancytopenia Problem: Acute (8) UTI (urinary tract infection) Problem: Acute Qualifiers: Encounter type: initial encounter (9) Depression with anxiety Problem: Acute
[2020-03-04] MEDS: ENOXAPARIN SODIUM 40 MG/0.4 ML SYRG SC SCH (16:49)
[2020-03-04] MEDS: INSULIN GLARGINE,HUM.REC.ANLOG 100 UNITS/ML VIAL SC SCH (21:20)
[2020-03-04] MEDS: SIMVASTATIN 20 MG TABLET PO SCH (21:21)
[2020-03-05 06:31] LABS: Hematocrit 31.6 % (37.0-47.0); Hemoglobin 10.6 gm/dL (12.5-16.0); Mean Cell Volume 83.2 fl (78-100); Mean Corpuscular Hemoglobin 27.9 pg (27-31); Mean Corpuscular Hgb Conc 33.5 g/dl (32-36); Mean Platelet Volume 9.7 fl (8-12.5); Platelet Count 280 K/mm3 (150-450); Red Cell Distribution Width 12.8 % (11.5-14.0); White Blood Count 8.7 K/mm3 (4.0-10.5)
[2020-03-05 06:33] LABS: Total Cells Counted 100
[2020-03-05 06:42] LABS: Albumin * 2.4 gm/dl (3.4-5.0); Bilirubin, Total 0.4 mg/dL (0.0-1.1); Ca. Corrected For Albumin 9.3 mg/dL (8.4-10.2); Calcium * 8.3 mg/dL (7.9-10.9); Carbon Dioxide 22.6 mmol/L (24-32.6); Potassium 4.6 mmol/L (3.4-4.6); Total Protein 5.4 gm/dL (6.2-8.2)
[2020-03-05 06:57] LABS: Atypical (Reactive) Lymph 1 % (0-2); Lymphocyte 25 % (20-51); Monocyte 7 % (0-9); Neutrophil 67 % (42-75); Neutrophil # 5.8 K/mm3 (1.3-6.0); Platelet Estimate Normal (NORMAL)
[2020-03-05 06:58] LABS: RBC Morphology Normal (NORMAL)
[2020-03-05] MEDS: INSULIN LISPRO 100 UNITS/ML VIAL SC SCH ×4 (06:58→21:23)
[2020-03-05] MEDS: MEMANTINE HCL 10 MG TABLET PO SCH ×2 (08:06→21:16)
[2020-03-05] MEDS: POLYETHYLENE GLYCOL 3350 17 GM PACKET PO SCH (08:06)
[2020-03-05] MEDS: VENLAFAXINE HCL 37.5 MG CAP.SR.24H PO SCH (08:06)
[2020-03-05] MEDS: CLOPIDOGREL BISULFATE 75 MG TABLET PO SCH (08:07)
[2020-03-05] MEDS: amLODIPine BESYLATE 10 MG TABLET PO SCH (08:07)
[2020-03-05] MEDS: TOPIRAMATE 50 MG TABLET PO SCH ×2 (08:08→21:16)
--- NOTE | 2020-03-05 10:35 | PN ---
Subjective - Date and Time Seen Date: 03/05/20 Time: 09:29 Subjective Narrative: She states her cough has improved, she continues to have shortness of breath with exertion. She has not had a bowel movement. Objective - Review of Systems Generalized/Overall Review: Denies: Fever Respiratory: Reports: Shortness of Breath - With exertion. Denies: Cough Cardiac: Denies: Chest Pain Abdominal: Reports: Constipation. Denies: Abdominal Pain Misc: All systems neg except as marked - Vitals Vitals: Last Vital Signs Temp 36.5 C 03/05/20 07:03 Pulse 50 L 03/05/20 08:07 Resp 16 03/05/20 07:03 BP 187/95 H 03/05/20 08:07 Pulse Ox 100 03/05/20 07:03 - Abnormal Lab Findings Abnormal Lab Findings: Abnormal Lab Results 03/05/20 03/05/20 Range/Units 06:25 06:25 RBC 3.80 L (4.2-5.4) M/mm3 Hgb 10.6 L (12.5-16.0) gm/dL Hct 31.6 L (37.0-47.0) % Chloride 107 H (97-106) mmol/L Carbon Dioxide 22.6 L (24-32.6) mmol/L Anion Gap 14.0 H (6.8-13.8) mmol/L BUN 57 H (3-23) mg/dL Creatinine 1.78 H (0.4-1.4) mg/dL Est GFR (Non-Af Amer) 30 L (60-130) mL/min BUN/Creatinine Ratio 32.0 H (9.0-21.6) Random Glucose 167 H (70-110) mg/dL Total Protein 5.4 L (6.2-8.2) gm/dL Albumin 2.4 L (3.4-5.0) gm/dl - Exam Constitutional: Present: Alert, Cooperative, Well developed, Well nourished, No distress, Elderly ENT Exam: Present: hard of hearing Neck: Present: non-tender, supple. Absent: lymphadenopathy (R), lymphadenopathy (L) Respiratory: Present: lungs clear, no respiratory distress, no accessory muscle use, No wheezing. Absent: crackles, rhonchi Cardiovascular/Chest: Present: normal peripheral pulses, regular rate, rhythm, no edema, no murmur Abdomen: Present: Normal bowel sounds, soft, nontender Extremity: Present: no pedal edema Skin Exam: Present: normal color, warm/dry Neurologic: Present: alert, normal mood/affect Appearance: Present: appropriate appearance, appropriate insight Eye contact: Present: cooperative Thoughts: Present: normal thought pattern, normal mood /affect Assessment/Plan Plan Narrative: 70-year-old female with a past medical history of CAD, diabetes mellitus, depression, hypertension, hypercholesterolemia, hypertensive retinopathy of both eyes, seizure, restless legs, neuropathy, myocardial infarct presents from home with complaints of left-sided chest pain radiating to her abdomen. Symptoms were associated with shortness of breath and a mild cough. She states she has been having diarrhea at home. Denies fevers and chills. She presented to the emergency department and was found to have an oxygen saturation of 88 to 93% on room air, no leukocytosis, elevated creatinine of 2.44, her baseline creatinine is typically 1.4-1.68, GFR of 21 and her baseline creatinine is typically in the mid 30s. She was also found to be positive for COVID-19 and had a positive UA. She was started on ceftriaxone and azithromycin in the emergency department. Chest x-ray is positive for consolidation in the lateral aspect of the left lower lobe in the posterior inferior aspect of the right lower lobe concerning for pneumonia, abdominal x-ray showed nonspecific bowel gas pattern. She is being admitted for pneumonia. She remains afebrile. She complains of shortness of breath with exertion but is doing well without oxygen supplementation. Awaiting placement in a long-term per family's request. Due to the coronavirus pandemic nursing homes are requiring the patient to have 10 days from initial symptoms prior to acceptance to the long-term. Plan #1 Mood is low due to having to move into a long-term. She was recently started on venlafaxine #2 CBC and CMP in the morning #3 She has completed treatment for the pneumonia and the UTI. #4 oxygen supplementation as needed, #5 Continue home medications for comorbidities #6 Dexamethasone has been stopped #7 VTE prophylaxis with Lovenox #8 Continue moderate-intensity insulin sliding scale before meals #9 discharge planning, patient's family wants her to go to a long-term. #10 start hydrochlorothiazide and hydralazine for elevated blood pressure #11 start Colace for constipation, continue with MiraLAX and senna - Problems/Diagnosis (1) COVID-19 virus detected Problem: Acute (2) Pneumonia Problem: Acute Qualifiers: Pneumonia type: due to unspecified organism Laterality: bilateral Lung location: lower lobe of lung Qualified Code(s): J18.9 - Pneumonia, unspecified organism (3) Renal failure (ARF), acute on chronic Problem: Acute Qualifiers: Acute renal failure type: unspecified Chronic kidney disease stage: unspecified stage Qualified Code(s): N17.9 - Acute kidney failure, unspecified; N18.9 - Chronic kidney disease, unspecified (4) Diabetes mellitus type 2, uncontrolled, with complications Problem: Acute (5) Seizure disorder as sequela of cerebrovascular accident Problem: Acute (6) Hypertension Problem: Chronic Qualifiers: Hypertension type: essential hypertension Qualified Code(s): I10 - Essential (primary) hypertension (7) Pancytopenia Problem: Acute (8) UTI (urinary tract infection) Problem: Acute Qualifiers: Encounter type: initial encounter (9) Depression with anxiety Problem: Acute
[2020-03-05] MEDS: DOCUSATE SODIUM 100 MG CAPSULE PO SCH ×2 (11:22→21:16)
[2020-03-05] MEDS: hydrALAZINE HCL 10 MG TABLET PO SCH ×3 (11:22→21:27)
[2020-03-05] MEDS: HYDROCHLOROTHIAZIDE 12.5 MG CAPSULE PO SCH (11:22)
[2020-03-05] MEDS: ENOXAPARIN SODIUM 40 MG/0.4 ML SYRG SC SCH (14:54)
[2020-03-05] MEDS: SIMVASTATIN 20 MG TABLET PO SCH (21:16)
[2020-03-05] MEDS: INSULIN GLARGINE,HUM.REC.ANLOG 100 UNITS/ML VIAL SC SCH (21:16)
[2020-03-06] MEDS: hydrALAZINE HCL 10 MG TABLET PO SCH ×4 (04:54→21:15)
[2020-03-06 06:34] LABS: Hematocrit 31.5 % (37.0-47.0); Hemoglobin 10.5 gm/dL (12.5-16.0); Mean Cell Volume 84.9 fl (78-100); Mean Corpuscular Hemoglobin 28.3 pg (27-31); Mean Corpuscular Hgb Conc 33.3 g/dl (32-36); Mean Platelet Volume 9.4 fl (8-12.5); Platelet Count 243 K/mm3 (150-450); Red Blood Count 3.71 M/mm3 (4.2-5.4); Red Cell Distribution Width 13.2 % (11.5-14.0); White Blood Count 9.5 K/mm3 (4.0-10.5)
[2020-03-06 06:37] LABS: Total Cells Counted 100
[2020-03-06 06:56] LABS: Albumin * 2.2 gm/dl (3.4-5.0); Anion Gap 13.4 mmol/L (6.8-13.8); BUN/Creatinine Ratio 32.5 (9.0-21.6); Bilirubin, Total 0.2 mg/dL (0.0-1.1); Ca. Corrected For Albumin 9.3 mg/dL (8.4-10.2); Calcium * 8.2 mg/dL (7.9-10.9); Carbon Dioxide 22.1 mmol/L (24-32.6); Potassium 4.5 mmol/L (3.4-4.6); Total Protein 4.9 gm/dL (6.2-8.2)
[2020-03-06 06:59] LABS: Anisocytosis Trace; Eosinophil 1 % (0-3); Immature Granulocyte 1 (0-1); Lymphocyte 31 % (20-51); Monocyte 10 % (0-9); Neutrophil 57 % (42-75); Neutrophil # 5.4 K/mm3 (1.3-6.0); Platelet Estimate Normal (NORMAL)
[2020-03-06] MEDS: INSULIN LISPRO 100 UNITS/ML VIAL SC SCH ×4 (10:06→21:29)
[2020-03-06] MEDS: ONDANSETRON 4 MG TAB.RAPDIS PO PRN (10:59)
[2020-03-06] MEDS: TOPIRAMATE 50 MG TABLET PO SCH ×2 (11:10→21:14)
[2020-03-06] MEDS: MEMANTINE HCL 10 MG TABLET PO SCH ×2 (11:10→21:15)
[2020-03-06] MEDS: DOCUSATE SODIUM 100 MG CAPSULE PO SCH ×2 (11:10→21:15)
[2020-03-06] MEDS: POLYETHYLENE GLYCOL 3350 17 GM PACKET PO SCH (12:13)
--- NOTE | 2020-03-06 12:16 | PN ---
Subjective - Date and Time Seen Date: 03/06/20 Time: 09:14 Subjective Narrative: She complains of nausea but has not vomited. She did have a small bowel movement last night. Objective - Review of Systems Generalized/Overall Review: Denies: Fever Respiratory: Denies: Cough, Shortness of Breath Cardiac: Denies: Chest Pain Abdominal: Reports: Nausea. Denies: Vomiting, Abdominal Pain Misc: All systems neg except as marked - Vitals Vitals: Last Vital Signs Temp 36.6 C 03/06/20 07:45 Pulse 58 L 03/06/20 10:09 Resp 16 03/06/20 10:09 BP 116/68 03/06/20 10:09 Pulse Ox 100 03/06/20 10:09 - Abnormal Lab Findings Abnormal Lab Findings: Abnormal Lab Results 03/06/20 03/06/20 Range/Units 06:20 06:20 RBC 3.71 L (4.2-5.4) M/mm3 Hgb 10.5 L (12.5-16.0) gm/dL Hct 31.5 L (37.0-47.0) % Monocytes % (Manual) 10 H (0-9) % Chloride 107 H (97-106) mmol/L Carbon Dioxide 22.1 L (24-32.6) mmol/L BUN 62 H (3-23) mg/dL Creatinine 1.91 H (0.4-1.4) mg/dL Est GFR (Non-Af Amer) 28 L (60-130) mL/min BUN/Creatinine Ratio 32.5 H (9.0-21.6) Random Glucose 166 H (70-110) mg/dL Total Protein 4.9 L (6.2-8.2) gm/dL Albumin 2.2 L (3.4-5.0) gm/dl - Exam Constitutional: Present: Alert, Cooperative, Well developed, Well nourished, No distress, Elderly ENT Exam: Present: hearing grossly normal Neck: Present: non-tender. Absent: lymphadenopathy (R), lymphadenopathy (L) Respiratory: Present: lungs clear, no respiratory distress, no accessory muscle use, No wheezing. Absent: crackles, rhonchi Cardiovascular/Chest: Present: normal peripheral pulses, regular rate, rhythm, no edema, no murmur Abdomen: Present: Normal bowel sounds, soft, nontender Extremity: Present: no pedal edema Skin Exam: Present: normal color, warm/dry Neurologic: Present: alert, normal mood/affect Appearance: Present: appropriate appearance, appropriate insight Eye contact: Present: cooperative Thoughts: Present: normal mood /affect Assessment/Plan Plan Narrative: 70-year-old female with a past medical history of CAD, diabetes mellitus, depression, hypertension, hypercholesterolemia, hypertensive retinopathy of both eyes, seizure, restless legs, neuropathy, myocardial infarct presents from home with complaints of left-sided chest pain radiating to her abdomen. Symptoms were associated with shortness of breath and a mild cough. She states she has been having diarrhea at home. Denies fevers and chills. She presented to the emergency department and was found to have an oxygen saturation of 88 to 93% on room air, no leukocytosis, elevated creatinine of 2.44, her baseline creatinine is typically 1.4-1.68, GFR of 21 and her baseline creatinine is typically in the mid 30s. She was also found to be positive for COVID-19 and had a positive UA. She was started on ceftriaxone and azithromycin in the emergency department. Chest x-ray is positive for consolidation in the lateral aspect of the left lower lobe in the posterior inferior aspect of the right lower lobe concerning for pneumonia, abdominal x-ray showed nonspecific bowel gas pattern. She is being admitted for pneumonia. She remains afebrile. She complains of shortness of breath with exertion but is doing well without oxygen supplementation. Awaiting placement in a senior care per family's request. Due to the coronavirus pandemic nursing homes are requiring the patient to have 10 days from initial symptoms prior to acceptance to the senior care. She complains of nausea but has not vomited. She did have a small bowel movement last night. Plan #1 Mood is low due to having to move into a senior care. She was recently started on venlafaxine #2 CBC and CMP in the morning #3 She has completed treatment for the pneumonia and the UTI. #4 oxygen supplementation as needed, #5 Continue home medications for comorbidities #6 Dexamethasone has been stopped #7 VTE prophylaxis with Lovenox #8 Continue moderate-intensity insulin sliding scale before meals #9 discharge planning, patient's family wants her to go to a senior care. #10 Continue hydrochlorothiazide and hydralazine for elevated blood pressure #11 start Colace for constipation, continue with MiraLAX and senna - Problems/Diagnosis (1) COVID-19 virus detected Problem: Acute (2) Pneumonia Problem: Acute Qualifiers: Pneumonia type: due to unspecified organism Laterality: bilateral Lung location: lower lobe of lung Qualified Code(s): J18.9 - Pneumonia, unspecified organism (3) Renal failure (ARF), acute on chronic Problem: Acute Qualifiers: Acute renal failure type: unspecified Chronic kidney disease stage: unspecified stage Qualified Code(s): N17.9 - Acute kidney failure, unspecified; N18.9 - Chronic kidney disease, unspecified (4) Diabetes mellitus type 2, uncontrolled, with complications Problem: Acute (5) Seizure disorder as sequela of cerebrovascular accident Problem: Acute (6) Hypertension Problem: Chronic Qualifiers: Hypertension type: essential hypertension Qualified Code(s): I10 - Essential (primary) hypertension (7) Pancytopenia Problem: Acute (8) UTI (urinary tract infection) Problem: Acute Qualifiers: Encounter type: initial encounter (9) Depression with anxiety Problem: Acute
[2020-03-06] MEDS: CLOPIDOGREL BISULFATE 75 MG TABLET PO SCH (12:20)
[2020-03-06] MEDS: HYDROCHLOROTHIAZIDE 12.5 MG CAPSULE PO SCH (12:20)
[2020-03-06] MEDS: VENLAFAXINE HCL 37.5 MG CAP.SR.24H PO SCH (12:20)
[2020-03-06] MEDS: amLODIPine BESYLATE 10 MG TABLET PO SCH (12:20)
[2020-03-06] MEDS: ENOXAPARIN SODIUM 40 MG/0.4 ML SYRG SC SCH (16:45)
[2020-03-06] MEDS: SIMVASTATIN 20 MG TABLET PO SCH (21:15)
[2020-03-06] MEDS: INSULIN GLARGINE,HUM.REC.ANLOG 100 UNITS/ML VIAL SC SCH (21:29)
[2020-03-07] MEDS: ONDANSETRON 4 MG TAB.RAPDIS PO PRN (03:00)
[2020-03-07] MEDS: hydrALAZINE HCL 10 MG TABLET PO SCH ×2 (03:00→09:49)
[2020-03-07 06:29] LABS: Hematocrit 33.1 % (37.0-47.0); Hemoglobin 10.8 gm/dL (12.5-16.0); Mean Cell Volume 85.1 fl (78-100); Mean Corpuscular Hemoglobin 27.8 pg (27-31); Mean Corpuscular Hgb Conc 32.6 g/dl (32-36); Mean Platelet Volume 9.5 fl (8-12.5); Platelet Count 250 K/mm3 (150-450); Red Blood Count 3.89 M/mm3 (4.2-5.4); Red Cell Distribution Width 13.6 % (11.5-14.0); White Blood Count 10.4 K/mm3 (4.0-10.5)
[2020-03-07 06:33] LABS: Total Cells Counted 100
[2020-03-07 06:37] LABS: Albumin * 2.3 gm/dl (3.4-5.0); Anion Gap 12.7 mmol/L (6.8-13.8); BUN/Creatinine Ratio 29.1 (9.0-21.6); Bilirubin, Total 0.3 mg/dL (0.0-1.1); Ca. Corrected For Albumin 9.4 mg/dL (8.4-10.2); Calcium * 8.4 mg/dL (7.9-10.9); Carbon Dioxide 24.1 mmol/L (24-32.6); Potassium 4.8 mmol/L (3.4-4.6); Total Protein 5.2 gm/dL (6.2-8.2)
[2020-03-07 06:49] LABS: Lymphocyte 17 % (20-51); Monocyte 9 % (0-9); Neutrophil 74 % (42-75); Neutrophil # 7.7 K/mm3 (1.3-6.0); Platelet Estimate Normal (NORMAL); RBC Morphology Normal (NORMAL)
[2020-03-07] MEDS: INSULIN LISPRO 100 UNITS/ML VIAL SC SCH ×2 (06:56→11:32)
[2020-03-07] MEDS: CLOPIDOGREL BISULFATE 75 MG TABLET PO SCH (08:00)
[2020-03-07] MEDS: amLODIPine BESYLATE 10 MG TABLET PO SCH (08:00)
[2020-03-07] MEDS: MEMANTINE HCL 10 MG TABLET PO SCH (08:00)
[2020-03-07] MEDS: VENLAFAXINE HCL 37.5 MG CAP.SR.24H PO SCH (08:00)
[2020-03-07] MEDS: TOPIRAMATE 50 MG TABLET PO SCH (08:00)
[2020-03-07] MEDS: DOCUSATE SODIUM 100 MG CAPSULE PO SCH (08:00)
[2020-03-07] MEDS: POLYETHYLENE GLYCOL 3350 17 GM PACKET PO SCH (08:00)
--- NOTE | 2020-03-07 11:18 | DS ---
(1) COVID-19 virus detected Problem: Acute (2) Pneumonia Problem: Acute Qualifiers: Pneumonia type: due to unspecified organism Laterality: bilateral Lung location: lower lobe of lung Qualified Code(s): J18.9 - Pneumonia, unspecified organism (3) Renal failure (ARF), acute on chronic Problem: Acute Qualifiers: Acute renal failure type: unspecified Chronic kidney disease stage: unspecified stage Qualified Code(s): N17.9 - Acute kidney failure, unspecified; N18.9 - Chronic kidney disease, unspecified (4) Diabetes mellitus type 2, uncontrolled, with complications Problem: Acute (5) Seizure disorder as sequela of cerebrovascular accident Problem: Acute (6) Hypertension Problem: Chronic Qualifiers: Hypertension type: essential hypertension Qualified Code(s): I10 - Essential (primary) hypertension (7) Pancytopenia Problem: Acute (8) UTI (urinary tract infection) Problem: Acute Qualifiers: Encounter type: initial encounter (9) Depression with anxiety Problem: Acute Hospital Course: 70-year-old female with a past medical history of CAD, diabetes mellitus, depression, hypertension, hypercholesterolemia, hypertensive retinopathy of both eyes, seizure, restless legs, neuropathy, myocardial infarct presents from home with complaints of left-sided chest pain radiating to her abdomen. Symptoms were associated with shortness of breath and a mild cough. She states she has been having diarrhea at home. Denies fevers and chills. She presented to the emergency department and was found to have an oxygen saturation of 88 to 93% on room air, no leukocytosis, elevated creatinine of 2.44, her baseline creatinine is typically 1.4-1.68, GFR of 21 and her baseline creatinine is typically in the mid 30s. She was also found to be positive for COVID-19 and had a positive UA. She was started on ceftriaxone and azithromycin in the emergency department. Chest x-ray is positive for consolidation in the lateral aspect of the left lower lobe in the posterior inferior aspect of the right lower lobe concerning for pneumonia, abdominal x-ray showed nonspecific bowel gas pattern. She is being admitted for pneumonia. She remains afebrile. She complains of shortness of breath with exertion but is doing well without oxygen supplementation. Awaiting placement in a half-way per family's request. Due to the coronavirus pandemic nursing homes are requiring the patient to have 10 days from initial symptoms prior to acceptance to the half-way. During hospitalization she had elevated blood pressures and was started on hydralazine and hydrochlorothiazide. Her blood pressures have since normalized. She complains of nausea but has not vomited. She is tolerating a diet. She is moving her bowels. She is stable to be discharged today. Raysa Olson is homebound due to the presence of COVID-19, CKD, diabetes mellitus, CAD, and depression. The need for halfway is for medication management, monitoring vitals and diagnosis education. The need for physical therapy for strengthening, endurance, mobility, ADL teaching to be safe. The need for home health care skilled services is directly related to time spent [id number] with the person. She will need to follow-up with me in the office Procedures Performed: none Results and Findings: Lab Pending Results 02/26/20 12:25: WBC 4.3, RBC 3.42 L, Hgb 9.9 L, Hct 30.1 L, MCV 88.0, MCH 28.9, MCHC 32.9, RDW 13.0, Plt Count 119 L, MPV 10.7, Immature Gran % (Auto) 1.20 H, Immature Gran # (Auto) 0.05 H, Neutrophils % 65.4, Lymphocytes % 28.0, Monocytes % 5.4, Eosinophils % 0.0, Basophils % 0.0, Nucleated RBC % 0.0, Neutrophils # 2.8, Lymphocytes # 1.19 L, Monocytes # 0.2, Eosinophils # 0.0, Absolute Basophils 0.0 02/26/20 12:25: Sodium 139, Plasma Sodium 140, Potassium 4.6, Chloride 106, Carbon Dioxide 23.2 L, Anion Gap 14.4 H, BUN 37 H, Creatinine 2.44 H D, Est GFR (Non-Af Amer) 21 L, BUN/Creatinine Ratio 15.2, Random Glucose 165 H, Calcium 8.1, Calcium Adj for Albumin 9.1, Total Bilirubin 0.4, AST 123 H, ALT 43, Alkaline Phosphatase 140, Troponin I 0.041, Total Protein 5.7 L, Albumin 2.4 L, Amylase 26, Lipase 54 L 02/26/20 15:17: Urine Color Yellow, Urine Appearance Slightly cloudy, Urine pH 6.5, Ur Specific [place] 1.020, Urine Protein >=300 H, Urine Glucose (UA) 100 H, Urine Ketones Negative, Urine Blood 5 H, Urine Nitrate Negative, Urine Bilirubin Negative, Prot Sulfosalicylic Acd 4+ H, Urine Urobilinogen Normal, Ur Leukocyte Esterase 100 H, Urine RBC 0-5, Urine WBC 25-50 H, Ur Epithelial Cells 10-25 H, Urine Bacteria 4+ H, Urine Culture Comments Culture to follow 02/26/20 15:18: SARS-CoV-2 (PCR) Detected H 02/27/20 06:00: WBC 3.7 L, RBC 3.32 L, Hgb 9.4 L, Hct 29.1 L, MCV 87.7, MCH 28.3, MCHC 32.3, RDW 13.1, Plt Count 126 L, MPV 10.7, Immature Gran % (Auto) 0.80 H, Immature Gran # (Auto) 0.03, Neutrophils % 55.7, Lymphocytes % 37.6, Monocytes % 5.6, Eosinophils % 0.0, Basophils % 0.3, Nucleated RBC % 0.0, Neutrophils # 2.1, Lymphocytes # 1.40 L, Monocytes # 0.2, Eosinophils # 0.0, Absolute Basophils 0.0 02/27/20 06:30: Sodium 141, Plasma Sodium 140, Potassium 4.2, Chloride 109 H, Carbon Dioxide 23.8 L, Anion Gap 12.4, BUN 35 H, Creatinine 2.12 H, Est GFR (Non-Af Amer) 24 L, BUN/Creatinine Ratio 16.5, Random Glucose 51 L D, Calcium 7.9, Calcium Adj for Albumin 9.0, Total Bilirubin 0.3, AST 113 H, ALT 77 H, Alkaline Phosphatase 196 H, Total Protein 5.4 L, Albumin 2.2 L 02/28/20 06:26: WBC 2.5 L D, RBC 3.46 L, Hgb 9.8 L, Hct 29.2 L, MCV 84.4, MCH 28.3, MCHC 33.6, RDW 12.7, Plt Count 128 L, MPV 10.7, Immature Gran % (Auto) 1.20 H, Immature Gran # (Auto) 0.03, Neutrophils % 71.6, Lymphocytes % 22.0, Monocytes % 5.2, Eosinophils % 0.0, Basophils % 0.0, Nucleated RBC % 0.0, Neutrophils # 1.8, Lymphocytes # 0.55 L, Monocytes # 0.1, Eosinophils # 0.0, Absolute Basophils 0.0 02/28/20 06:26: Sodium 135, Plasma Sodium 139, Potassium 4.7 H, Chloride 103, Carbon Dioxide 20.1 L, Anion Gap 16.6 H, BUN 43 H, Creatinine 2.16 H, Est GFR (Non-Af Amer) 24 L, BUN/Creatinine Ratio 19.9, Random Glucose 367 H D, Calcium 7.9, Calcium Adj for Albumin 9.0, Total Bilirubin 0.2, AST 48, ALT 53, Alkaline Phosphatase 173 H, Total Protein 5.6 L, Albumin 2.2 L 02/29/20 06:33: WBC 3.4 L D, RBC 3.42 L, Hgb 9.6 L, Hct 28.6 L, MCV 83.6, MCH 28.1, MCHC 33.6, RDW 12.5, Plt Count 147 L, MPV 10.3, Immature Gran % (Auto) 2.40 H, Immature Gran # (Auto) 0.08 H, Neutrophils % 76.1 H, Lymphocytes % 15.3 L, Monocytes % 5.6, Eosinophils % 0.0, Basophils % 0.6, Nucleated RBC % 0.0, Neutrophils # 2.6, Lymphocytes # 0.52 L, Monocytes # 0.2, Eosinophils # 0.0, Absolute Basophils 0.0 02/29/20 06:33: Sodium 138, Plasma Sodium 142, Potassium 4.9 H, Chloride 106, Carbon Dioxide 20.0 L, Anion Gap 16.9 H, BUN 44 H, Creatinine 1.97 H, Est GFR (Non-Af Amer) 27 L, BUN/Creatinine Ratio 22.3 H, Random Glucose 381 H, Calcium 8.4, Calcium Adj for Albumin 9.5, Total Bilirubin 0.2, AST 27, ALT 38, Alkaline Phosphatase 142, Total Protein 5.6 L, Albumin 2.2 L 03/01/20 07:08: WBC 4.2 D, RBC 3.38 L, Hgb 9.5 L, Hct 28.4 L, MCV 84.0, MCH 28.1, MCHC 33.5, RDW 12.7, Plt Count 165, MPV 10.6, Immature Gran % (Auto) 8.40 H, Immature Gran # (Auto) 0.35 H, Neutrophils % 67.1, Lymphocytes % 16.6 L, Monocytes % 7.2, Eosinophils % 0.0, Basophils % 0.7, Nucleated RBC % 0.0, Neutrophils # 2.8, Lymphocytes # 0.69 L, Monocytes # 0.3, Eosinophils # 0.0, Absolute Basophils 0.0 03/01/20 07:08: Sodium 141, Plasma Sodium 143 H, Potassium 4.5, Chloride 110 H, Carbon Dioxide 20.1 L, Anion Gap 15.4 H, BUN 51 H, Creatinine 1.92 H, Est GFR (Non-Af Amer) 27 L, BUN/Creatinine Ratio 26.6 H, Random Glucose 207 H D, Calcium 8.4, Calcium Adj for Albumin 9.5, Total Bilirubin 0.2, AST 32, ALT 37, Alkaline Phosphatase 117, Total Protein 5.4 L, Albumin 2.2 L 03/02/20 06:40: WBC 5.9 D, RBC 3.72 L, Hgb 10.4 L, Hct 31.2 L, MCV 83.9, MCH 28.0, MCHC 33.3, RDW 12.7, Plt Count 207, MPV 9.9, Neutrophils % (Manual) 60, Band Neuts % (Manual) 2, Lymphocytes % (Manual) 21, Monocytes % (Manual) 7, Immature Granulocytes 8 H, Neutrophils # (Manual) 3.5, Lymphocytes # (Manual) 1.2 L, Monocytes # (Manual) 0.4, Atypic/Reactive Lymphs 2, Hypochromasia Trace 03/02/20 06:40: Sodium 139, Plasma Sodium 141, Potassium 4.5, Chloride 108 H, Carbon Dioxide 21.6 L, Anion Gap 13.9 H, BUN 50 H, Creatinine 1.76 H, Est GFR (Non-Af Amer) 30 L, BUN/Creatinine Ratio 28.4 H, Random Glucose 212 H, Calcium 8.4, Calcium Adj for Albumin 9.5, Total Bilirubin 0.2, AST 65 H, ALT 66, Alkaline Phosphatase 105, Total Protein 5.4 L, Albumin 2.2 L 03/04/20 06:30: WBC 7.2 D, RBC 3.42 L, Hgb 9.7 L, Hct 28.6 L, MCV 83.6, MCH 28.4, MCHC 33.9, RDW 12.9, Plt Count 243, MPV 10.0, Neutrophils % (Manual) 66, Band Neuts % (Manual) 1, Lymphocytes % (Manual) 16 L, Monocytes % (Manual) 9, Basophils % (Manual) 4 H, Immature Granulocytes 3 H, Neutrophils # (Manual) 4.8, Lymphocytes # (Manual) 1.2 L, Monocytes # (Manual) 0.6, Basophils # (Manual) 0.3 H, Atypic/Reactive Lymphs 1, Platelet Estimate Normal, Hypochromasia Trace, Anisocytosis Trace 03/04/20 06:30: Sodium 139, Plasma Sodium 140, Potassium 4.8 H, Chloride 108 H, Carbon Dioxide 21.8 L, Anion Gap 14.0 H, BUN 53 H, Creatinine 1.73 H, Est GFR (Non-Af Amer) 31 L, BUN/Creatinine Ratio 30.6 H, Random Glucose 178 H, Calcium 8.3 03/05/20 06:25: WBC 8.7 D, RBC 3.80 L, Hgb 10.6 L, Hct 31.6 L, MCV 83.2, MCH 27.9, MCHC 33.5, RDW 12.8, Plt Count 280, MPV 9.7, Neutrophils % (Manual) 67, Lymphocytes % (Manual) 25, Monocytes % (Manual) 7, Neutrophils # (Manual) 5.8, Lymphocytes # (Manual) 2.2, Monocytes # (Manual) 0.6, Atypic/Reactive Lymphs 1, Platelet Estimate Normal, RBC Morphology Normal 03/05/20 06:25: Sodium 139, Plasma Sodium 140, Potassium 4.6, Chloride 107 H, Carbon Dioxide 22.6 L, Anion Gap 14.0 H, BUN 57 H, Creatinine 1.78 H, Est GFR (Non-Af Amer) 30 L, BUN/Creatinine Ratio 32.0 H, Random Glucose 167 H, Calcium 8.3, Calcium Adj for Albumin 9.3, Total Bilirubin 0.4, AST 29, ALT 62, Alkaline Phosphatase 88, Total Protein 5.4 L, Albumin 2.4 L 03/06/20 06:20: WBC 9.5, RBC 3.71 L, Hgb 10.5 L, Hct 31.5 L, MCV 84.9, MCH 28.3, MCHC 33.3, RDW 13.2, Plt Count 243, MPV 9.4, Neutrophils % (Manual) 57, Lymphocytes % (Manual) 31, Monocytes % (Manual) 10 H, Eosinophils % (Manual) 1, Immature Granulocytes 1, Neutrophils # (Manual) 5.4, Lymphocytes # (Manual) 2.9, Monocytes # (Manual) 1.0, Eosinophils # (Manual) 0.1, Platelet Estimate Normal, Anisocytosis Trace 03/06/20 06:20: Sodium 138, Plasma Sodium 139, Potassium 4.5, Chloride 107 H, Carbon Dioxide 22.1 L, Anion Gap 13.4, BUN 62 H, Creatinine 1.91 H, Est GFR (Non-Af Amer) 28 L, BUN/Creatinine Ratio 32.5 H, Random Glucose 166 H, Calcium 8.2, Calcium Adj for Albumin 9.3, Total Bilirubin 0.2, AST 22, ALT 51, Alkaline Phosphatase 81, Total Protein 4.9 L, Albumin 2.2 L 03/07/20 06:17: WBC 10.4, RBC 3.89 L, Hgb 10.8 L, Hct 33.1 L, MCV 85.1, MCH 27.8, MCHC 32.6, RDW 13.6, Plt Count 250, MPV 9.5, Neutrophils % (Manual) 74, Lymphocytes % (Manual) 17 L, Monocytes % (Manual) 9, Neutrophils # (Manual) 7.7 H, Lymphocytes # (Manual) 1.8, Monocytes # (Manual) 0.9, Platelet Estimate Normal, RBC Morphology Normal 03/07/20 06:17: Sodium 139, Plasma Sodium 139, Potassium 4.8 H, Chloride 107 H, Carbon Dioxide 24.1, Anion Gap 12.7, BUN 57 H, Creatinine 1.96 H, Est GFR (Non- Af Amer) 27 L, BUN/Creatinine Ratio 29.1 H, Random Glucose 82 D, Calcium 8.4, Calcium Adj for Albumin 9.4, Total Bilirubin 0.3, AST 22, ALT 45, Alkaline Phosphatase 78, Total Protein 5.2 L, Albumin 2.3 L Discharge Location: Home Disposition: [facility] Health Agency: [facility] Condition: Stable Discharge Activity: Activity as tolerated Discharge Diet: General/regular food Referrals: Lauren Garcia MD [Primary Care Provider] - Additional Patient Instructions (free text): [facility] new at discharge- fax discharge summary, orders, and medication list and call report. Prescriptions (Any new or edited meds): hydrALAZINE HCL [Apresoline] 10 mg PO Q6H #120 tab Transmission Status: Pending to [facility] Hydrochlorothiazide [Microzide] 12.5 mg PO DAILY@1100 #30 cap Transmission Status: Pending to [facility] Ondansetron [Zofran Odt] 4 mg PO Q8H PRN #20 tab.rapdis PRN Reason: Nausea And Vomiting Transmission Status: Pending to [facility] Complete Home Medications List: Complete Home Medication List: topiramate 25 mg tablet 25 mg PO BID #180 tab 12/29/18 insulin glargine 100 unit/mL subcutaneous solution 25 unit SUBCUT HS #10 ml 08/16/19 difluprednate 0.05 % eye drops 1 drp OP QID 10/05/19 amlodipine 5 mg tablet 5 mg PO DAILY #90 tab 12/25/19 clopidogrel 75 mg tablet 75 mg PO DAILY #90 tab 12/25/19 insulin syringe-needle U-100 0.3 mL 31 gauge x /16" See Rx Instructions .ROUTE .COMPLEX #100 unknown measurement unit code: each 01/01/20 pravastatin 40 mg tablet 40 mg PO HS #90 tab 02/16/20 Memantine HCl 5 mg PO BID 02/26/20 Hydrochlorothiazide [Microzide] 12.5 mg PO DAILY@1100 #30 cap 03/07/20 Ondansetron [Zofran Odt] 4 mg PO Q8H PRN #20 tab.rapdis 03/07/20 hydrALAZINE HCL [Apresoline] 10 mg PO Q6H #120 tab 03/07/20 Forms: Patient Portal Registration
[2020-03-07] MEDS: HYDROCHLOROTHIAZIDE 12.5 MG CAPSULE PO SCH (11:30)
[2020-03-07 15:46] VITALS: BP 132/72
== END 2020-03-07 15:15 | disposition home health service (06) | DRG 177 ==
LOC: ER 12:58 → MS 12:58
PROVIDERS: ADMIT Internal Medicine; ATTEND Internal Medicine
DX: E11.3512 Type 2 diabetes mellitus with proliferative diabetic retinopathy with macular edema, left eye; E11.22 Type 2 diabetes mellitus with diabetic chronic kidney disease; Z79.4 Long term (current) use of insulin; B96.20 Unspecified Escherichia coli [E. coli] as the cause of diseases classified elsewhere; R09.02 Hypoxemia; J12.89 Other viral pneumonia; E78.00 Pure hypercholesterolemia, unspecified; E11.40 Type 2 diabetes mellitus with diabetic neuropathy, unspecified; D61.818 Other pancytopenia; U07.1 COVID-19; N17.9 Acute kidney failure, unspecified; K59.00 Constipation, unspecified; I25.10 Atherosclerotic heart disease of native coronary artery without angina pectoris; I69.398 Other sequelae of cerebral infarction; I12.9 Hypertensive chronic kidney disease with stage 1 through stage 4 chronic kidney disease, or unspecified chronic kidney disease; N18.3 Chronic kidney disease, stage 3 (moderate); E11.3311 Type 2 diabetes mellitus with moderate nonproliferative diabetic retinopathy with macular edema, right eye; F41.8 Other specified anxiety disorders; N39.0 Urinary tract infection, site not specified